=== PATIENT | female | born 1950 | race Caucasian/White ===

== ENCOUNTER 2016-03-13 15:56 | Emergency (ER) | payer MEDICARE, BC ==
[2016-03-13] MEDS ORDERED: PANTOPRAZOLE 40 MG VIAL IVP STA (17:09)
[2016-03-13] MEDS ORDERED: PANTOPRAZOLE 40 MG VIAL ONE (17:24)
== END 2016-03-13 20:50 | disposition home or self-care (01) ==
DX: D64.9 Anemia, unspecified (principal); K92.2 Gastrointestinal hemorrhage, unspecified; E11.22 Type 2 diabetes mellitus with diabetic chronic kidney disease; N18.9 Chronic kidney disease, unspecified; Z99.2 Dependence on renal dialysis; Z79.4 Long term (current) use of insulin; E78.00 Pure hypercholesterolemia, unspecified; Z87.19 Personal history of other diseases of the digestive system
CPT/HCPCS: 36415; 36430; 80048; 85025; 85610; 85730; 86850; 86900; 86901; 86920; 96374; 99283; 99284; P9016

== ENCOUNTER 2016-03-19 06:58 | Emergency (ER) | payer MEDICARE, BC ==
[2016-03-19] MEDS ORDERED: guaiFENesin/CODEINE 5 ML UDC PO STA (07:30)
[2016-03-19] MEDS ORDERED: guaiFENesin/CODEINE 5 ML UDC ONE (07:42)
[2016-03-19] MEDS ORDERED: LIDOCAINE PATCH 5% TOP STA (11:10)
[2016-03-19] MEDS ORDERED: LIDOCAINE PATCH 5% TOP ONE (11:11)
== END 2016-03-19 11:28 | disposition home or self-care (01) ==
DX: J18.9 Pneumonia, unspecified organism (principal); R07.89 Other chest pain; E11.22 Type 2 diabetes mellitus with diabetic chronic kidney disease; N18.6 End stage renal disease; Z99.2 Dependence on renal dialysis; Z79.4 Long term (current) use of insulin
CPT/HCPCS: 36415; 71020; 71250; 80048; 85025; 93005; 93010; 99283; 99284; A9270

== ENCOUNTER 2016-06-03 08:00 | Outpatient (CLI) | payer MEDICARE, BC | END 2016-06-03 08:01 | disposition home or self-care (01) | DX: R78.81 Bacteremia (principal) ==

== ENCOUNTER 2016-06-08 16:38 | Outpatient (CLI) | payer MEDICARE, BC | END 2016-06-08 16:39 | disposition critical access hospital (66) | DX: R53.1 Weakness (principal); R53.83 Other fatigue | CPT/HCPCS: A0425; A0429 ==

== ENCOUNTER 2016-06-08 17:00 | Emergency (ER) | payer MEDICARE, BC ==
--- NOTE | 2016-06-08 17:25 | ED Physician Documentation ---
History of Present Illness - Stated complaint Stated Complaint: weakness - Chief complaint Chief Complaint: Neuro - History obtained from History obtained from: Patient - History of Present Illness Timing: Today Pain level max: 0 Pain level now: 0 Improved by: rest Worsened by: movement - Additonal information Additional information: Patient is a 66-year-old female who presents to the emergency department after feeling weak all day today. States has become progressively weak throughout the day. States last time this happened her potassium was high. She is a hemodialysis patient, on dialysis at home. Sees Dr. Cohn for nephrology. Denies any recent illnesses or injury. She states it is been 2 days since her last dialysis Review of Systems Ten Systems: 10 systems reviewed and negative Constitutional: denies: Fever, Chills Nose: denies: Rhinorrhea / runny nose, Congestion Throat: denies: Sore throat Respiratory: denies: Cough GI: denies: Nausea, Vomiting, Diarrhea Skin: denies: Rash Musculoskeletal: denies: Neck pain, Back pain Neurologic: denies: Focal weakness, Numbness, Confused, Altered mental status, Headache PD PAST MEDICAL HISTORY - Past Medical History Past Medical History: Yes Cardiovascular: High cholesterol Endocrine/Autoimmune: Type 2 diabetes Psych: Depression, Anxiety Other Past Medical History: Abd'l Hernia - Past Surgical History Past Surgical History: Yes - Present Medications Home Medications: Ambulatory Orders Medication Instructions Recorded Confirmed Allopurinol 100 mg PO DAILY 06/05/14 06/08/16 Temazepam [Restoril] 7.5 mg PO DAILY PRN 06/05/14 06/08/16 buPROPion [Wellbutrin Xl] 300 mg PO DAILY 06/05/14 06/08/16 predniSONE [Deltasone] 2.5 mg PO BID 06/05/14 06/08/16 Citalopram Hydrobromide 40 mg PO DAILY 01/27/15 06/08/16 [Citalopram HBr] Furosemide 160 mg PO BID 01/27/15 06/08/16 Sevelamer Carbonate [Renvela] 3 tab PO TID 01/27/15 06/08/16 Calcitriol [Rocaltrol] 0.5 mcg PO DAILY 10/10/15 06/08/16 Calcium Carbonate 1,500 mg PO DAILY 10/10/15 06/08/16 Cinacalcet HCl [Sensipar] 60 mg PO DAILY 10/10/15 06/08/16 Levothyroxine Sodium [Unithroid] 150 mcg PO DAILY 10/10/15 06/08/16 Omeprazole 40 mg PO DAILY 10/10/15 06/08/16 Rosuvastatin Calcium [Crestor] 20 mg PO DAILY 10/10/15 06/08/16 Solifenacin Succinate [Vesicare] 5 mg PO DAILY 10/10/15 06/08/16 Azithromycin [Zithromax] 250 mg PO DAILY #6 tablet 03/19/16 06/08/16 Heparin Sodium,Porcine/Pf [Heparin 1,600 units IV DAILY 03/19/16 06/08/16 1,000 Unit/10 (100/ml)] - Allergies Allergies/Adverse Reactions: Allergies Allergy/AdvReac Type Severity Reaction Status Date / Time promethazine HCl * AdvReac Hallucinati Verified 06/08/16 17:14 [From Phenergan] ons - Social History Does the pt smoke?: No Smoking Status: Never smoker Does the pt drink ETOH?: Yes ETOH Use: Liquor Does the pt have substance abuse?: No - Immunizations Immunizations are current?: Yes - POLST Patient has POLST: No PD ED PE NORMAL - Vitals Vital signs reviewed: Yes - General General: Alert and oriented X 3, No acute distress, Well developed/nourished - HEENT HEENT: Moist mucous membranes - Neck Neck: Supple, no meningeal sign - Cardiac Cardiac: RRR, Strong equal pulses - Respiratory Respiratory: No respiratory distress, Clear bilaterally - Abdomen Abdomen: Soft, Non tender, Non distended - Derm Derm: Warm and dry, No rash - Extremities Extremities: Other (LUE fistula with palpable thrill) - Neuro Neuro: Alert and oriented X 3 - Psych Psych: Normal mood, Normal affect Results - Vitals Vitals: Vital Signs - 24 hr 06/08/16 06/08/16 06/08/16 17:02 17:40 18:03 Temperature 37.1 C Heart Rate 96 96 92 Respiratory 19 20 19 Rate Blood Pressure 156/87 H 149/85 H 149/85 H O2 Saturation 98 100 99 06/08/16 19:54 Temperature Heart Rate 92 Respiratory 12 Rate Blood Pressure 159/79 H O2 Saturation 100 Oxygen O2 Source Room air - EKG (time done) 1811 Rate: Rate (enter#) (90) Rhythm: NSR [place]: Normal Intervals: Prolonged ND QRS: Normal Ischemia: Other (minimal ST elevation II, aVF) - Labs Labs: Laboratory Tests 06/08/16 06/08/16 06/08/16 17:28 17:28 17:28 WBC 9.4 RBC 3.05 L Hgb 8.9 L Hct 26.3 L MCV 86.1 MCH 29.3 MCHC 34.0 RDW 16.0 H Plt Count 304 MPV 7.3 L Neut # 7.3 H Lymph # 1.2 L [place] # 0.6 Eos # 0.1 Baso # 0.1 Absolute Nucleated RBC 0.02 Nucleated RBCs 0.2 Sodium 130 L Potassium 6.1 H* Chloride 90 L Carbon Dioxide 24 Anion Gap 16.0 H BUN 84 H* Creatinine 9.6 H* Estimated GFR (MDRD) 4 L Glucose 227 H Calcium 7.5 L Phosphorus 4.6 Magnesium 3.0 H Total Bilirubin 0.6 AST 30 ALT 27 Alkaline Phosphatase 63 Troponin I 0.05 Total Protein 7.4 Albumin 4.4 Globulin 3.0 Albumin/Globulin Ratio 1.5 Lipase 57 H - Rads (name of study) cxr Radiology: Prelim report reviewed, EMP read contemporaneously, See rad report ( New cardiomegaly and pulmonary vascular congestion, suggesting CHF) PD MEDICAL DECISION MAKING - ED course Complexity details: reviewed old records, reviewed results, re-evaluated patient , considered differential, d/w patient, d/w outside sales consultant (Dr. Cohn - Recommends d/ c home, kayexalate 30gm PO, and dialysis when she returns home.) ED course: Patient presents to the emergency department with a mild hyperkalemia. No EKG changes. Given insulin here as she does have high blood sugar. She is able to do her dialysis at home tonight, will have her do this. Discussed with Dr. Cohn , who will follow up with her. This should also help the fluid overload. She is on Lasix at home and does still make urine. She is otherwise asymptomatic here. No hypoxia. No respiratory distress. No chest pain. Patient counseled regarding signs and symptoms for which I believe and urgent re-evaluation would be necessary. Patient with good understanding of and agreement to plan and is comfortable going home at this time This document was made in part using voice recognition software. While efforts are made to proofread this document, sound alike and grammatical errors may occur. Departure - Departure Disposition: 01 Home, Self Care Clinical Impression: Hyperkalemia Pulmonary edema Qualifiers: Chronicity: acute Qualified Code(s): J81.0 - Acute pulmonary edema Condition: Good Instructions: ED Potassium Excess Follow-Up: René Wood MD [Primary Care Provider] - Within 3 Days Comments: Return if you worsen. I spoke with Dr. Suki avery and he says you need to go home and do your dialysis. Return here if you fail to improve. You should have your potassium rechecked in 3 days with your doctor Discharge Date/Time: 06/08/16 20:32
[2016-06-08] MEDS: SODIUM CHLORIDE 0.9% 500 ML IV ONE (17:40)
[2016-06-08 18:18] LABS: ALBUMIN/GLOBULIN RATIO 1.5 (1.0-2.2); BILIRUBIN,TOTAL 0.6 mg/dL (0.2-1.0); CALCIUM 7.5 mg/dL (8.5-10.3); PHOSPHORUS 4.6 mg/dL (2.5-4.6); TOTAL PROTEIN 7.4 g/dL (6.7-8.2)
[2016-06-08 18:19] LABS: POTASSIUM 6.1 mmol/L (3.5-5.0)
[2016-06-08 18:21] LABS: CREATININE 9.6 mg/dL (0.4-1.0)
[2016-06-08 18:29] LABS: BASOPHILS # (AUTO) 0.1 10^3/uL (0.0-0.1); BASOPHILS % (AUTO) 0.8 %; EOSINOPHILS # (AUTO) 0.1 10^3/uL (0.0-0.7); EOSINOPHILS % (AUTO) 0.7 %; HCT - HEMATOCRIT 26.3 % (37.0-47.0); HGB - HEMOGLOBIN 8.9 g/dL (12.0-16.0); LYMPHOCYTES # (AUTO) 1.2 10^3/uL (1.5-3.5); LYMPHOCYTES % (AUTO) 13.2 %; MEAN CORPUSCULAR HEMOGLOBIN 29.3 pg (27.0-31.0); MEAN CORPUSCULAR VOLUME 86.1 fL (81.0-99.0); MEAN PLATELET VOLUME 7.3 fL (7.9-10.8); MONOCYTES # (AUTO) 0.6 10^3/uL (0.0-1.0); MONOCYTES % (AUTO) 6.9 %; NEUTROPHILS # (AUTO) 7.3 10^3/uL (1.5-6.6); NEUTROPHILS % (AUTO) 78.4 %; NUCLEATED RED BLOOD CELLS AUTO 0.2 /100WBC; RED BLOOD COUNT 3.05 10^6/uL (4.20-5.40); UNCORRECTED WHITE BLOOD COUNT 9.4 x10^3/uL; WHITE BLOOD COUNT 9.4 x10^3/uL (4.8-10.8)
[2016-06-08] MEDS ORDERED: INSULIN REGULAR HUMAN 100 UNIT/1 ML 10 ML MDV ONE (18:29)
[2016-06-08] MEDS: INSULIN REGULAR HUMAN 100 UNIT/1 ML 10 ML MDV SUBQ STA (18:32)
[2016-06-08] MEDS ORDERED: SODIUM POLYSTYRENE SULFONATE 15 GM/60 ML BOTTLE ONE (18:43)
[2016-06-08 19:55] VITALS: BP 159/79
--- NOTE | 2016-06-08 19:56 | XRAY Preliminary Report ---
Exam: XR Chest 1 View IMPRESSION: New cardiomegaly and pulmonary vascular congestion, suggesting CHF. [facility]
--- NOTE | 2016-06-08 19:58 | XRAY Report ---
EXAM: CHEST RADIOGRAPHY EXAM DATE: 06/08/2016 07:30 PM. CLINICAL HISTORY: Dyspnea and weakness. COMPARISON: CT chest and chest radiograph 03/19/2016. TECHNIQUE: 1 view. FINDINGS: Lungs/Pleura: New diffuse vascular engorgement. No pneumothorax or convincing pleural effusion. Mediastinum: New cardiomegaly. Other: Degenerative changes within the spine. IMPRESSION: New cardiomegaly and pulmonary vascular congestion, suggesting CHF. [facility] Referring Provider Line: [phone]
[2016-06-08] MEDS: SODIUM POLYSTYRENE SULFONATE 15 GM/60 ML BOTTLE PO STA (20:04)
== END 2016-06-08 20:32 | disposition home or self-care (01) ==
LOC: EDUNIT# → ED 17:00
DX: E87.5 Hyperkalemia (principal); J81.0 Acute pulmonary edema; E78.00 Pure hypercholesterolemia, unspecified; E11.9 Type 2 diabetes mellitus without complications
CPT/HCPCS: 36415; 71010; 80053; 83690; 83735; 84100; 84484; 85025; 93005; 93010; 99284

== ENCOUNTER 2016-06-11 08:00 | Outpatient (CLI) | payer MEDICARE, BC | END 2016-06-11 08:01 | DX: R78.81 Bacteremia (principal) ==

== ENCOUNTER 2016-06-17 10:59 | Outpatient (CLI) | payer MEDICARE, BC | END 2016-06-17 11:00 | disposition home or self-care (01) | DX: G47.33 Obstructive sleep apnea (adult) (pediatric) (principal) | CPT/HCPCS: 99203; G0463 ==

== ENCOUNTER 2016-07-01 16:22 | Outpatient (CLI) | payer MEDICARE, BC | END 2016-07-01 16:23 | disposition home or self-care (01) | DX: R78.81 Bacteremia (principal) ==

== ENCOUNTER 2016-07-06 21:00 | Outpatient (CLI) | payer MEDICARE, BC | END 2016-07-06 21:01 | disposition home or self-care (01) | DX: Z53.9 Procedure and treatment not carried out, unspecified reason (principal) ==

== ENCOUNTER 2016-07-13 08:02 | Observation (INO) | payer MEDICARE, BC ==
--- NOTE | 2016-07-13 08:57 | ED Physician Documentation ---
History of Present Illness - Stated complaint Stated Complaint: WEAKNESS - Chief complaint Chief Complaint: General - Additonal information Additional information: hx from pt 66 f ESRD does home hemodialysis 5 d per week her maker up folding is Dr Cohn she has chronic GI bleeding - has been extensively worked up with EGD colonoscopy tagged red cell study, swallowed camera etc with no dx - beleieved to be slow seepage 2.2 ESRD had a transfusion yesterday feels generally weak today - no focal numbness or weakness so her nephorlogist told her to come in to get checked - specifically lytes and HGB denies fever chills no NELSON CP AP cough no NVD stools dark could be 2/2 iron infusion she states she is 3 kg up but does not feel she has pulm edema and declines CXR Review of Systems Constitutional: denies: Fever, Chills Throat: denies: Sore throat Cardiac: denies: Chest pain / pressure Respiratory: reports: Cough. denies: Dyspnea GI: reports: Bloody / black stool (dark). denies: Abdominal Pain, Nausea, Vomiting : reports: Other (ESRD) Neurologic: reports: Generalized weakness. denies: Focal weakness, Numbness Endocrine: denies: Easy bruising / bleeding Immunocompromised: denies: Immunocompromised PD PAST MEDICAL HISTORY - Past Medical History Past Medical History: Yes Cardiovascular: High cholesterol Endocrine/Autoimmune: Type 2 diabetes Psych: Depression, Anxiety - Past Surgical History Past Surgical History: Yes - Present Medications Home Medications: Ambulatory Orders Medication Instructions Recorded Confirmed Allopurinol 100 mg PO DAILY 06/05/14 07/12/16 Temazepam [Restoril] 7.5 mg PO DAILY PRN 06/05/14 07/12/16 buPROPion [Wellbutrin Xl] 300 mg PO DAILY 06/05/14 07/12/16 predniSONE [Deltasone] 2.5 mg PO BID 06/05/14 07/12/16 Citalopram Hydrobromide 40 mg PO DAILY 01/27/15 07/12/16 [Citalopram HBr] Furosemide 160 mg PO BID 01/27/15 07/12/16 Sevelamer Carbonate [Renvela] 3 tab PO TID 01/27/15 07/12/16 Calcitriol [Rocaltrol] 0.5 mcg PO DAILY 10/10/15 07/12/16 Calcium Carbonate 1,500 mg PO DAILY 10/10/15 07/12/16 Cinacalcet HCl [Sensipar] 60 mg PO DAILY 10/10/15 07/12/16 Levothyroxine Sodium [Unithroid] 150 mcg PO DAILY 10/10/15 07/12/16 Omeprazole 40 mg PO DAILY 10/10/15 07/12/16 Rosuvastatin Calcium [Crestor] 20 mg PO DAILY 10/10/15 07/12/16 Solifenacin Succinate [Vesicare] 5 mg PO DAILY 10/10/15 07/12/16 Azithromycin [Zithromax] 250 mg PO DAILY #6 tablet 03/19/16 07/12/16 Heparin Sodium,Porcine/Pf [Heparin 1,600 units IV DAILY 03/19/16 07/12/16 1,000 Unit/10 (100/ml)] - Allergies Allergies/Adverse Reactions: Allergies Allergy/AdvReac Type Severity Reaction Status Date / Time promethazine HCl * AdvReac Hallucinati Verified 06/08/16 17:14 [From Phenergan] ons - Social History Does the pt smoke?: No Smoking Status: Never smoker Does the pt drink ETOH?: Yes Does the pt have substance abuse?: No - Immunizations Immunizations are current?: Yes - POLST Patient has POLST: No PD ED PE NORMAL - Vitals Vital signs reviewed: Yes - HEENT HEENT: Atraumatic - Neck Neck: Supple, no meningeal sign - Cardiac Cardiac: RRR. No: No murmur (loud sys mur,urs - not new per pt, per chart) - Respiratory Respiratory: No respiratory distress, Clear bilaterally - Abdomen Abdomen: Soft, Non tender - Rectal Rectal: Other (dark strongly heme occult + stool QC passed) - Derm Derm: Normal color - Extremities Extremities: No deformity - Neuro Neuro: Alert and oriented X 3, improvement rn 2-12 intact, No motor deficit, No sensory deficit, Normal speech Results - Vitals Vitals: Vital Signs - 24 hr 07/13/16 07/13/16 07/13/16 08:08 09:38 10:37 Temperature 36.7 C Heart Rate 98 91 91 Respiratory 16 20 Rate Blood Pressure 164/88 H 158/88 H 144/70 H O2 Saturation 95 96 95 07/13/16 11:25 Temperature Heart Rate 88 Respiratory 18 Rate Blood Pressure 163/77 H O2 Saturation 96 Oxygen O2 Source Room air - EKG (time done) 0852 Rate: Rate (enter#) (92) Rhythm: NSR [place]: Normal Intervals: Normal [place] QRS: Normal Ischemia: Normal ST segments - Labs Labs: Laboratory Tests 07/13/16 07/13/16 07/13/16 09:00 09:00 09:00 WBC 9.7 RBC 2.73 L Hgb 8.4 L Hct 23.4 L MCV 85.8 MCH 31.0 MCHC 36.1 H RDW 15.5 H Plt Count 236 MPV 7.8 L Neut # 7.5 H Lymph # 0.9 L [place] # 1.0 Eos # 0.2 Baso # 0.1 Absolute Nucleated RBC 0.03 Nucleated RBCs 0.3 Sodium 135 Potassium 4.0 Chloride 95 L Carbon Dioxide 23 Anion Gap 17.0 H BUN 83 H* Creatinine 10.4 H* Estimated GFR (MDRD) 4 L Glucose 124 H Calcium 9.2 Phosphorus 6.4 H Magnesium 2.5 Troponin I 0.07 PD MEDICAL DECISION MAKING - ED course ED course: discussed results with nephrology diamond expert he recommends pt need hgb > 9 and if still GI bleeding and < 9 transfer to [facility] for admit for transfusion where there is nephrology pt however declines to be transferred to [facility] - she states she wants to be transfused here and then will do her own dialysis tonight at home since will take many hours to slowly transfuse a dialysis pt while watching for fluid overload discussed with hospitalist Dr Diaz who agreed to place pt in obs Departure - Departure Disposition: ED Place in Observation Clinical Impression: Weakness, ESRD (end stage renal disease) GI bleed Qualifiers: GI bleed type/associated pathology: unspecified gastrointestinal hemorrhage type Qualified Code(s): K92.2 - Gastrointestinal hemorrhage, unspecified Anemia Qualifiers: Anemia type: unspecified type Qualified Code(s): D64.9 - Anemia, unspecified Condition: Fair Discharge Date/Time: 07/13/16 12:31
[2016-07-13 09:09] LABS: BASOPHILS # (AUTO) 0.1 10^3/uL (0.0-0.1); BASOPHILS % (AUTO) 0.9 %; EOSINOPHILS # (AUTO) 0.2 10^3/uL (0.0-0.7); EOSINOPHILS % (AUTO) 2.3 %; HCT - HEMATOCRIT 23.4 % (37.0-47.0); HGB - HEMOGLOBIN 8.4 g/dL (12.0-16.0); LYMPHOCYTES # (AUTO) 0.9 10^3/uL (1.5-3.5); LYMPHOCYTES % (AUTO) 9.2 %; MEAN CORPUSCULAR HGB CONC 36.1 g/dL (32.0-36.0); MEAN CORPUSCULAR VOLUME 85.8 fL (81.0-99.0); MEAN PLATELET VOLUME 7.8 fL (7.9-10.8); MONOCYTES % (AUTO) 10.6 %; NEUTROPHILS # (AUTO) 7.5 10^3/uL (1.5-6.6); NUCLEATED RED BLOOD CELLS AUTO 0.3 /100WBC; RED BLOOD COUNT 2.73 10^6/uL (4.20-5.40); RED CELL DISTRIBUTION WIDTH 15.5 % (12.0-15.0); UNCORRECTED WHITE BLOOD COUNT 9.7 x10^3/uL; WHITE BLOOD COUNT 9.7 x10^3/uL (4.8-10.8)
[2016-07-13 09:58] LABS: CALCIUM 9.2 mg/dL (8.5-10.3); MAGNESIUM 2.5 mg/dL (1.7-2.8); PHOSPHORUS 6.4 mg/dL (2.5-4.6)
[2016-07-13 10:00] LABS: CREATININE 10.4 mg/dL (0.4-1.0)
[2016-07-13] MEDS ORDERED: oxyCODONE 5 MG TABLET PO PRN ×2 (11:56)
[2016-07-13] MEDS ORDERED: ACETAMINOPHEN 325 MG TABLET PO PRN (11:56)
[2016-07-13] MEDS ORDERED: ONDANSETRON 4 MG/2 ML VIAL IVP PRN (11:56)
[2016-07-13] MEDS ORDERED: SODIUM CHLORIDE FLUSH 0.9% 10 ML SYRINGE IVP PRN (11:56)
[2016-07-13] MEDS ORDERED: FUROSEMIDE 40 MG TABLET PO SCH (12:00)
--- NOTE | 2016-07-13 12:06 | HISTORY & PHYSICAL EXAMINATION ---
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 The patient was transfused 2 units of packed RBCs in the [facility] clinic yesterday as she had a hemoglobin of 7.3 from last Friday. She states that she returned home and did dialysis last night and when she woke up this morning she felt very dizzy and weak this is usually an indication to her that she needs further blood transfusion. The patient presents to the emergency department for a blood transfusion. Patient states that she has chronic shortness of breath that is not any worse than her normal. Patient also states she has chronic cough but is not any worse than her normal. She denies any chest pain. She states that her normal dry weight is 90.8 kg and today her weight is 93.8 kg. On presentation to the emergency department the patient was afebrile and had stable vital signs her CBC revealed a hemoglobin of 8.4. The patient's residential treatment staff Dr. Caraballo requested that the patient be transfused slowly. Initially plan was for the patient to be sent to [facility] to be transfused however the patient declined to be transferred. She requested that she get transfused 1 unit here and then she would return home to perform dialysis. She stated that if she needed further transfusion she would return to the emergency department. Patient was placed in observation on the medical huynh for 1 unit blood transfusion and then will be discharged home for dialysis. Review of Systems - Constitutional Constitutional: reports: Fatigue, Weakness, Poor appetite, Weight gain. denies : Fever, Chills, Malaise, Diaphoresis, Night sweats - Eyes Eyes: denies: Pain, Irritation, Amaurosis, Blurred vision, Spots in vision, Field loss, Vision loss, Dipolpia, Corrective lenses, Other - Ears, Nose & Throat Ears, Nose & Throat: denies: Ear pain, Hearing loss, Hearing aids, Tinnitus, Vertigo, Nasal pain, Nasal discharge, Nosebleeds, Nasal obstruction, Nasal congestion, Postnasal drainage, Dentures, Sore throat, Hoarseness, Mouth lesions , Bleeding gums, Dental decay, Dental pain, Other - Cardiovascular Cariovascular: denies: Irregular heart rate, Palpitations, Chest pain, Edema, Lightheadedness, Syncope, Exertional dyspnea, Decr. exercise tolerance, Orthopnea, Other - Respiratory Respiratory: reports: Cough (chronic), SOB with exertion (chronic). denies: Sputum production, Wheezing, Hemoptysis, Orthopnea, Apnea, Pleuritic pain - Gastrointestinal Gastrointestinal: reports: Other (large abd hernia). denies: Abdominal pain, Abdominal distention, Constipation, Diarrhea, Change in bowel habits, Rectal bleeding, Black stools, Bloody stools, Nausea, Vomiting, Bile emesis, Silver blood emesis, Coffee grounds emesis, Reflux/heartburn, Bloating, Poor appetite - Genitourinary Genitourinary: denies: Dysuria, Frequency, Urgency, Hematuria, Incontinence, Flank pain, Nocturia, Urethral discharge, Sexual dysfunction, Other - Musculoskeletal Musculoskeletal: denies: Muscle pain, Back pain, Muscle aches, Stiffness, Limited range of motion, Muscle weakness, Gout, Joint pain, Joint swelling, Other - Integumentary Integumentary: denies: Rash, Pruritis, Lesions, Dryness, Lumps, Acne, Pigment changes, Nail changes, Hair changes, Other - Neurological Neurological: reports: General weakness, Dizziness. denies: Focal weakness, Headache, Numbness, Memory problems, Pre-existing deficit, Abnormal gait, Seizures, Incoordination, Slurred speech - Psychiatric Psychiatric: denies: Depression, Anxiety, Suicidal, Delusions, Hallucinations, Homicidal, Other - Endocrine Endocrine: denies: Polyuria, Polydypsia, Polyphagia, Intolerance to cold, Intolerance to heat, Other - Hematologic/Lymphatic Hematologic/Lymphatic: denies: Anemia, Bruising, Petechiae, Blood clots, Lymphadenopathy, Bleeding tendencies, Recurrent infections, Other History - Past Medical History Cardiovascular: reports: Hypertension, High cholesterol Endocrine/Autoimmune: reports: Type 2 diabetes GI: reports: GI bleed (chronic), Other (Hernia) : reports: Dialysis, Other (End Stage Renal Disease) Psych: reports: Depression, Anxiety MRSA Hx?: No - Past Surgical History Other past surgical history: Kidney trasplant 2006 - Family & Social History Family History: Mother: Cancer (uterine), Father: (Had macular degeneration but of old age), Sister: Alive and Well, Brother: Diabetes, Type 2 Living arrangement: At home Living Situation: With spouse/s.o. 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 Lives in [place] with significant other, 2 daughters in [place] , 4 grandkids. - Substance History Use: Uses substance without health or social issues: Alcohol (occasionally drinks a glass of wine or whiskey), Cannabis (occasionally) Abuse: Recurrent use of substance despite neg consequences: NONE Dependence: Experiences withdrawal or developed tolerances: NONE - POLST Patient has POLST: No POLST Status: Full Code Meds/Allgy - Home Medications Home Medications: Ambulatory Orders Medication Instructions Recorded Confirmed Allopurinol 100 mg PO DAILY 06/05/14 07/12/16 Temazepam [Restoril] 7.5 mg PO DAILY PRN 06/05/14 07/12/16 buPROPion [Wellbutrin Xl] 300 mg PO DAILY 06/05/14 07/12/16 predniSONE [Deltasone] 2.5 mg PO BID 06/05/14 07/12/16 Citalopram Hydrobromide 40 mg PO DAILY 01/27/15 07/12/16 [Citalopram HBr] Furosemide 160 mg PO BID 01/27/15 07/12/16 Sevelamer Carbonate [Renvela] 3 tab PO TID 01/27/15 07/12/16 Calcitriol [Rocaltrol] 0.5 mcg PO DAILY 10/10/15 07/12/16 Calcium Carbonate 1,500 mg PO DAILY 10/10/15 07/12/16 Cinacalcet HCl [Sensipar] 60 mg PO DAILY 10/10/15 07/12/16 Levothyroxine Sodium [Unithroid] 150 mcg PO DAILY 10/10/15 07/12/16 Omeprazole 40 mg PO DAILY 10/10/15 07/12/16 Rosuvastatin Calcium [Crestor] 20 mg PO DAILY 10/10/15 07/12/16 Solifenacin Succinate [Vesicare] 5 mg PO DAILY 10/10/15 07/12/16 Azithromycin [Zithromax] 250 mg PO DAILY #6 tablet 03/19/16 07/12/16 Heparin Sodium,Porcine/Pf [Heparin 1,600 units IV DAILY 03/19/16 07/12/16 1,000 Unit/10 (100/ml)] - Allergies Allergies/Adverse Reactions: Allergies Allergy/AdvReac Type Severity Reaction Status Date / Time promethazine HCl * AdvReac Hallucinati Verified 06/08/16 17:14 [From Phenergan] ons Exam - Vital Signs Reviewed Vital Signs: Yes Vital Signs: Vital Signs x48h Temp Pulse Resp BP Pulse Ox 07/13/16 11:25 88 18 163/77 H 96 07/13/16 10:37 91 20 144/70 H 95 07/13/16 09:38 91 158/88 H 96 07/13/16 08:08 36.7 C 98 16 164/88 H 95 - Physical Exam General Appearance: positive: No acute distress, Alert, Other (Obese) Eyes Bilateral: positive: Normal inspection, PERRL, EOMI, No lid inflammation, Conjunctivae nml, No scleral icterus ENT: positive: ENT inspection nml, Pharynx nml, No signs of dehydration. negative: Purulent nasal drainage, Pharyngeal erythema, Oral lesions Neck: positive: Nml inspection, Thyroid nml, No JVD, Trachea midline. negative : Thyromegaly, Lymphadenopathy (R), Lymphadenopathy (L) Respiratory: positive: Chest non-tender, No respiratory distress, Rales (bases) . negative: Wheezes, Rhonchi Cardiovascular: positive: Regular rate & rhythm, No murmur, No gallop Peripheral Pulses: positive: 2+ Abdomen: positive: Non-tender, No organomegaly, Nml bowel sounds, Other (Large hernia). negative: Guarding, Rebound Back: positive: Nml inspection. negative: CVA tenderness (R), CVA tenderness (L ) Skin: positive: Color nml, No rash, Warm, Pallor Extremities: positive: Non-tender, Full ROM, Nml appearance, Pedal edema (mild) Neurologic/Psychiatric: positive: Oriented x3, CN's nml (2-12), Motor nml, Sensation nml, Mood/affect nml Conclusion/Plan - Problem List (1) Anemia Conclusion/Plan: Secondary to chronic GI bleed of undetermined source likely from AVMs Full work up done over years Treated with periodic blood transfusion Blood transfusion yesterday with 2 units but still symptomatic Patient does not want to go to [facility] for blood transfusion Plan: Give 1 units PRBC Recheck Hb Send home for home dialysis Qualifiers: Anemia type: unspecified type Qualified Code(s): D64.9 - Anemia, unspecified (2) ESRD (end stage renal disease) Conclusion/Plan: 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 Qualifiers: Diabetes mellitus type: type 2 - Lab Results Lab results reviewed: Yes Fish Bones: 07/13/16 09:00 07/13/16 09:00 - Diagnostic Imaging Results Diagnostic Imaging Results: positive: Final report reviewed Issues/Core Measures - Anticipated LOS Anticipated Stay Length: Less than 2 midnights - DVT/VTE - Prophylaxis VTE/DVT Prophylaxis med ordered at admit?: Yes
[2016-07-13 13:35] LABS: HEMOGLOBIN A1C 0.31 g/dL
[2016-07-13] MEDS ORDERED: SODIUM CHLORIDE FLUSH 0.9% 10 ML SYRINGE IVP SCH (14:00)
[2016-07-13] MEDS ORDERED: INSULIN ASPART 300 UNIT/3 ML PEN SUBQ SCH (17:00)
--- NOTE | 2016-07-13 17:57 | Discharge Plan ---
Discharge Plan Disposition: Home, Self Care Condition: Fair Diet: Diabetic Activity Restrictions: Activity as Tolerated Shower Restrictions: No Driving Restrictions: No Weight Bearing: Full Weight Additional Instructions or Follow Up instructions: You presented to the hospital with dizziness and nausea. We found your Hb was only 8.4 despite you getting 2 units of blood yesterday. We placed you in observation to get 1 units of blood today. You received the blood and there were no complications so you are ready to go home. Please make sure to do dialysis today and I would recommend taking off a little extra fluid the next few days as you are a bit over your dry weight. Also please follow up for a lab draw on Friday to check your Hb. No Smoking: If you smoke, Please STOP! Call for help.
[2016-07-13 18:54] VITALS: BP 165/70
[2016-07-14] MEDS ORDERED: PANTOPRAZOLE 40 MG TABLET PO SCH (07:00)
--- NOTE | 2016-07-14 08:34 | DISCHARGE SUMMARY ---
DATE OF ADMISSION: 07/13/2016 DATE OF DISCHARGE: 07/13/2016 PRIMARY CARE PHYSICIAN: René Wood MD LIDAR ANALYST: Lucy Cohn MD DISCHARGING PHYSICIAN: Esteban Diaz MD DISCHARGE DIAGNOSES 1. Anemia. 2. End-stage renal disease. 3. Diabetes. MEDICATIONS 1. Prednisone 2.5 mg p.o. b.i.d. 2. Wellbutrin-XL 300 mg p.o. daily. 3. Restoril 7.5 mg p.o. daily p.r.n. for anxiety. 4. VESIcare 5 mg p.o. daily. 5. Renvela 2400 mg p.o. b.i.d. 6. Crestor 20 mg p.o. daily. 7. Omeprazole 40 mg p.o. daily. 8. Synthroid 150 mcg p.o. daily. 9. Lasix 160 mg p.o. b.i.d. 10. Citalopram 40 mg p.o. daily. 11. Cinacalcet 60 mg p.o. daily. 12. Calcium carbonate 1500 mg p.o. daily. 13. Calcitriol 0.5 mcg p.o. daily. 14. Azithromycin 250 mg p.o. daily. 15. Allopurinol 100 mg p.o. daily. HOSPITAL COURSE: The patient is a very pleasant 66-year-old female with a past medical history significant for end-stage renal disease on home dialysis 5 times a week secondary to focal segmental glomerular nephritis diagnosed in 2004 , status post transplant in 2006, with failed transplant in 2012, back on dialysis, history of chronic GI bleed with extensive workup including EGD, colonoscopy, capsule endoscopy and RBC scan without obvious source, thought to likely be bleeding slowly from AVMs, who receives blood transfusions off and on , diabetes, hypertension, hyperlipidemia and large abdominal hernia, who presented to the emergency department with a chief complaint of dizziness and weakness. The patient had just received 2 units of packed RBCs in the MAC clinic the day prior to presentation. She had a hemoglobin of 7.3 one week prior to the transfusion, but the hemoglobin was only reported to her just the day prior to presentation to the hospital. The patient states that after she returned home from the transfusion she did perform dialysis at home. However, when she woke up in the morning, she felt very dizzy, felt weak and was nauseous. She stated that this usually indicates that she needs further blood transfusions, so she came in to the emergency department. The patient on presentation to the emergency department was found to have a hemoglobin of 8.4 and at the request of Dr. Cohn, the patient was placed in observation for an additional unit of packed RBCs. The patient received 1 unit of packed RBCs in observation. She declined to have her hemoglobin drawn. She did get a lab request form for hemoglobin to be drawn on 07/15/2016. The patient was discharged home, will perform dialysis today. She was asked to take off extra fluid for the next several days of dialysis as she was above her dry weight by about 3 kg on presentation to the hospital. The patient was advised to follow up with her primary care physician and her pipe buffer. The results of the hemoglobin draw on 07/13/2016 will be sent to Dr. Wood and Dr. Cohn. The patient was discharged in stable condition. PHYSICAL EXAMINATION AT DISCHARGE VITAL SIGNS: Temperature 37.1, heart rate 99, blood pressure 151/71, respiratory rate 18, O2 saturation 97% on room air. GENERAL: The patient is obese. She is pleasant, alert, and able to answer all my questions appropriately. HEENT: Pupils are equal and reactive to light. Extraocular muscles are intact. Mucous membranes are moist. There is no conjunctival pallor or scleral icterus noted. NECK: Supple. No thyromegaly. No JVD. Trachea is midline. LYMPH NODES: There is no cervical or axillary lymphadenopathy noted. CARDIOVASCULAR: S1, S2, regular rate and rhythm. No murmurs, rubs, or gallops. LUNGS: Clear to auscultation bilaterally. No wheezes, rhonchi, or crackles. ABDOMEN: Obese. There is a large hernia that is protruding from the patient's abdomen. Otherwise bowel sounds are present, and there is no rebound or guarding. EXTREMITIES: There is some mild lower extremity edema. Peripheral pulses are palpable. There is no cyanosis or clubbing. SKIN: No skin rash, lesions, cellulitis, or abscesses. MUSCULOSKELETAL: The patient has good range of motion. No joint tenderness. No joint effusions. NEUROLOGIC: The patient is alert, oriented x3. Cranial nerves 2 -12 are grossly intact. Strength is grossly normal. LABORATORY: WBC 9.7, hemoglobin 8.4, hematocrit 23.4, platelet count 236. Sodium 135, potassium 4.0, chloride 95, carbon dioxide 23, BUN 83, creatinine 10.4, glucose 124. Glycosylated hemoglobin 5.2, calcium 9.2, phosphorus 6.4, magnesium 2.5, troponin 0.07. IMAGING: EKG impression: Sinus rhythm, no ST elevations or ischemic changes. FOLLOWUP/RECOMMENDATIONS: The patient was placed in observation for 1 unit of blood transfusion. After transfusion, she was discharged home. She will perform dialysis at home. She will return on 07/15/2016 to have her blood drawn to check another hemoglobin. These results will be sent to Dr. Wood and Dr. Cohn. The patient will follow up with her pipe buffer and her PCP, and will continue on home dialysis. Greater than 30 minutes were spent on discharge. JOB #: [id number] EXT JOB #:[id number] MTDD
[2016-07-14] MEDS ORDERED: POLYETHYLENE GLYCOL 3350 17 GM PACKET PO SCH (09:00)
[2016-07-14] MEDS ORDERED: ENOXAPARIN 40 MG/0.4 ML SYRINGE SUBQ SCH (09:00)
== END 2016-07-13 19:05 | disposition home or self-care (01) ==
LOC: ED 08:02 → MS 11:56
PROVIDERS: ADMIT Internal Medicine; ATTEND Internal Medicine
DX: D50.0 Iron deficiency anemia secondary to blood loss (chronic) (principal); K92.2 Gastrointestinal hemorrhage, unspecified; T86.12 Kidney transplant failure; E11.22 Type 2 diabetes mellitus with diabetic chronic kidney disease; I12.0 Hypertensive chronic kidney disease with stage 5 chronic kidney disease or end stage renal disease; N18.6 End stage renal disease; E78.5 Hyperlipidemia, unspecified; E66.9 Obesity, unspecified; Z79.52 Long term (current) use of systemic steroids; Z99.2 Dependence on renal dialysis; Z79.899 Other long term (current) drug therapy; Z68.36 Body mass index [BMI] 36.0-36.9, adult
CPT/HCPCS: 36415; 36430; 80048; 83036; 83735; 84100; 84484; 85025; 86850; 86900; 86901; 86920; 93005; 93010; 99283; 99284; A9270; P9016; 82310; 85014; 85018

== ENCOUNTER 2016-07-15 16:00 | Outpatient (CLI) | payer MEDICARE, BC ==
[2016-07-15 19:56] LABS: BASOPHILS # (AUTO) 0.1 10^3/uL (0.0-0.1); BASOPHILS % (AUTO) 1.1 %; EOSINOPHILS # (AUTO) 0.3 10^3/uL (0.0-0.7); HCT - HEMATOCRIT 31.6 % (37.0-47.0); HGB - HEMOGLOBIN 11.3 g/dL (12.0-16.0); LYMPHOCYTES # (AUTO) 1.4 10^3/uL (1.5-3.5); LYMPHOCYTES % (AUTO) 16.9 %; MEAN CORPUSCULAR HEMOGLOBIN 31.4 pg (27.0-31.0); MEAN CORPUSCULAR HGB CONC 35.8 g/dL (32.0-36.0); MEAN CORPUSCULAR VOLUME 87.8 fL (81.0-99.0); MEAN PLATELET VOLUME 8.2 fL (7.9-10.8); MONOCYTES % (AUTO) 12.3 %; NEUTROPHILS # (AUTO) 5.7 10^3/uL (1.5-6.6); NEUTROPHILS % (AUTO) 66.7 %; NUCLEATED RED BLOOD CELLS AUTO 0.7 /100WBC; RED CELL DISTRIBUTION WIDTH 15.6 % (12.0-15.0); UNCORRECTED WHITE BLOOD COUNT 8.5 x10^3/uL; WHITE BLOOD COUNT 8.5 x10^3/uL (4.8-10.8)
== END 2016-07-15 23:59 | disposition home or self-care (01) ==
LOC: LAB.N 16:00
PROVIDERS: ATTEND Internal Medicine
DX: D64.9 Anemia, unspecified (principal)
CPT/HCPCS: 36415; 85025

== ENCOUNTER 2016-08-19 19:44 | Outpatient (CLI) | payer MEDICARE, BC | END 2016-08-19 19:45 | disposition home or self-care (01) | LOC: SC 19:44 | PROVIDERS: ATTEND Internal Medicine Pulmonary Disease | DX: G47.33 Obstructive sleep apnea (adult) (pediatric) (principal); Z68.36 Body mass index [BMI] 36.0-36.9, adult | CPT/HCPCS: 95810 ==

== ENCOUNTER 2016-08-30 11:32 | Emergency (ER) | payer MEDICARE, BC ==
--- NOTE | 2016-08-30 12:12 | ED Physician Documentation ---
PD HPI ABD PAIN - Stated complaint Stated Complaint: WEAKNESS/SOA - Chief complaint Chief Complaint: Abd Pain - History obtained from History obtained from: Patient - Additional information Additional information: 66-year-old woman on home hemodialysis, she is very self-sufficient. She has an occult GI bleed of unclear source despite PillCam, upper endoscopy, tagged red blood cell scan, and needs transfusing every month or 2. She feels weak generally and complains of very mild abdominal pain. She has dark and tarry stools. None of this is out of the ordinary for her. She presents for blood transfusion. Review of Systems Constitutional: denies: Fever, Chills Cardiac: denies: Chest pain / pressure, Palpitations Respiratory: denies: Dyspnea, Cough GI: denies: Nausea, Vomiting PD PAST MEDICAL HISTORY - Past Medical History Cardiovascular: High cholesterol Endocrine/Autoimmune: Type 2 diabetes GI: GI bleed, Other : Dialysis, Other Psych: Depression, Anxiety - Past Surgical History Past Surgical History: Yes - Present Medications Home Medications: Ambulatory Orders Medication Instructions Recorded Confirmed Allopurinol 100 mg PO DAILY 06/05/14 07/12/16 Temazepam [Restoril] 7.5 mg PO DAILY PRN 06/05/14 07/12/16 buPROPion [Wellbutrin Xl] 300 mg PO DAILY 06/05/14 07/12/16 predniSONE [Deltasone] 2.5 mg PO BID 06/05/14 07/12/16 Citalopram Hydrobromide 40 mg PO DAILY 01/27/15 07/12/16 [Citalopram HBr] Furosemide 160 mg PO BID 01/27/15 07/12/16 Sevelamer Carbonate [Renvela] 3 tab PO TID 01/27/15 07/12/16 Calcitriol [Rocaltrol] 0.5 mcg PO DAILY 10/10/15 07/12/16 Calcium Carbonate 1,500 mg PO DAILY 10/10/15 07/12/16 Cinacalcet HCl [Sensipar] 60 mg PO DAILY 10/10/15 07/12/16 Levothyroxine Sodium [Unithroid] 150 mcg PO DAILY 10/10/15 07/12/16 Omeprazole 40 mg PO DAILY 10/10/15 07/12/16 Rosuvastatin Calcium [Crestor] 20 mg PO DAILY 10/10/15 07/12/16 Solifenacin Succinate [Vesicare] 5 mg PO DAILY 10/10/15 07/12/16 Azithromycin [Zithromax] 250 mg PO DAILY #6 tablet 03/19/16 07/12/16 Heparin Sodium,Porcine/Pf [Heparin 1,600 units IV DAILY 03/19/16 07/12/16 1,000 Unit/10 (100/ml)] - Allergies Allergies/Adverse Reactions: Allergies Allergy/AdvReac Type Severity Reaction Status Date / Time adhesive tape Allergy Rash Verified 08/30/16 12:46 promethazine HCl * AdvReac Hallucinati Verified 06/08/16 17:14 [From Phenergan] ons - Social History Does the pt smoke?: No Smoking Status: Never smoker Does the pt drink ETOH?: Yes Does the pt have substance abuse?: No - Immunizations Immunizations are current?: Yes - POLST Patient has POLST: No POLST Status: Full Code PD ED PE NORMAL - Vitals Vital signs reviewed: Yes - General General: Alert and oriented X 3, No acute distress - HEENT HEENT: PERRL, EOMI - Cardiac Cardiac: RRR, Other (3/6 SM LUSB, chronic per pt) - Respiratory Respiratory: No respiratory distress, Clear bilaterally - Abdomen Abdomen: Non tender - Neuro Neuro: Alert and oriented X 3, Normal speech - Psych Psych: Normal mood, Normal affect Results - Vitals Vitals: Vital Signs - 24 hr 08/30/16 11:35 Temperature 36.5 C Heart Rate 90 Respiratory 18 Rate Blood Pressure 140/76 H O2 Saturation 99 Oxygen O2 Source Room air - Labs Labs: Laboratory Tests 08/30/16 12:19 WBC 7.2 RBC 2.16 L Hgb 6.8 L* Hct 19.7 L* MCV 91.2 MCH 31.7 H MCHC 34.8 RDW 17.0 H Plt Count 231 MPV 7.8 L Neut # 5.1 Lymph # 1.1 L [place] # 0.6 Eos # 0.3 Baso # 0.1 Absolute Nucleated RBC 0.00 Nucleated RBCs 0.0 PD MEDICAL DECISION MAKING - ED course ED course: She has a chronic upper GI bleed and requests transfusion, she has had a complete workup without source identification, and does not want admission to the hospital or further treatment other than transfusion. Departure - Departure Disposition: 01 Home, Self Care Clinical Impression: ESRD (end stage renal disease) GI bleed Qualifiers: GI bleed type/associated pathology: unspecified gastrointestinal hemorrhage type Qualified Code(s): K92.2 - Gastrointestinal hemorrhage, unspecified Anemia Qualifiers: Iron deficiency anemia type: chronic blood loss Condition: Stable Record reviewed to determine appropriate education?: Yes Instructions: ED Bleed UGI Stable Comments: Call your doctor to arrange a follow-up appointment, make the next available appointment. In the interim, return anytime if worse or if new symptoms develop. Your blood pressure was elevated today on check into the emergency department. This does not mean that you have hypertension, it is a common phenomenon to come to the emergency department and have elevated blood pressure. I recommend that she see her primary care physician within the week to have it rechecked when you are feeling better.
[2016-08-30 12:46] LABS: BASOPHILS # (AUTO) 0.1 10^3/uL (0.0-0.1); BASOPHILS % (AUTO) 1.2 %; EOSINOPHILS # (AUTO) 0.3 10^3/uL (0.0-0.7); EOSINOPHILS % (AUTO) 3.8 %; LYMPHOCYTES # (AUTO) 1.1 10^3/uL (1.5-3.5); LYMPHOCYTES % (AUTO) 15.6 %; MEAN CORPUSCULAR HEMOGLOBIN 31.7 pg (27.0-31.0); MEAN CORPUSCULAR HGB CONC 34.8 g/dL (32.0-36.0); MEAN CORPUSCULAR VOLUME 91.2 fL (81.0-99.0); MEAN PLATELET VOLUME 7.8 fL (7.9-10.8); MONOCYTES # (AUTO) 0.6 10^3/uL (0.0-1.0); MONOCYTES % (AUTO) 8.4 %; NEUTROPHILS # (AUTO) 5.1 10^3/uL (1.5-6.6); RED BLOOD COUNT 2.16 10^6/uL (4.20-5.40); UNCORRECTED WHITE BLOOD COUNT 7.2 x10^3/uL; WHITE BLOOD COUNT 7.2 x10^3/uL (4.8-10.8)
[2016-08-30 12:47] LABS: HCT - HEMATOCRIT 19.7 % (37.0-47.0); HGB - HEMOGLOBIN 6.8 g/dL (12.0-16.0)
[2016-08-30 18:35] VITALS: BP 134/59
== END 2016-08-30 18:45 | disposition home or self-care (01) ==
LOC: ED 11:32
DX: K92.2 Gastrointestinal hemorrhage, unspecified (principal); D50.0 Iron deficiency anemia secondary to blood loss (chronic); E11.22 Type 2 diabetes mellitus with diabetic chronic kidney disease; N18.6 End stage renal disease; R03.0 Elevated blood-pressure reading, without diagnosis of hypertension; E78.00 Pure hypercholesterolemia, unspecified; F41.9 Anxiety disorder, unspecified; F32.9 Major depressive disorder, single episode, unspecified; K21.9 Gastro-esophageal reflux disease without esophagitis; Z79.52 Long term (current) use of systemic steroids; Z99.2 Dependence on renal dialysis
CPT/HCPCS: 36415; 36430; 85025; 86850; 86900; 86901; 86920; 99283; 99284; P9016

== ENCOUNTER 2016-09-03 09:23 | Outpatient (CLI) | payer MEDICARE, BC | END 2016-09-03 09:24 | disposition home or self-care (01) | LOC: SC 09:23 | PROVIDERS: ATTEND Nurse Practitioner Family | DX: G47.33 Obstructive sleep apnea (adult) (pediatric) (principal) | CPT/HCPCS: 99214; G0463; 99212 ==

== ENCOUNTER 2016-09-30 13:11 | Emergency (ER) | payer MEDICARE, BC ==
[2016-09-30 14:34] LABS: BASOPHILS # (AUTO) 0.1 10^3/uL (0.0-0.1); EOSINOPHILS # (AUTO) 0.3 10^3/uL (0.0-0.7); HCT - HEMATOCRIT 20.4 % (37.0-47.0); LYMPHOCYTES # (AUTO) 0.9 10^3/uL (1.5-3.5); LYMPHOCYTES % (AUTO) 13.1 %; MEAN CORPUSCULAR HEMOGLOBIN 31.1 pg (27.0-31.0); MEAN CORPUSCULAR HGB CONC 33.5 g/dL (32.0-36.0); MEAN CORPUSCULAR VOLUME 93.1 fL (81.0-99.0); MEAN PLATELET VOLUME 6.5 fL (7.9-10.8); MONOCYTES # (AUTO) 0.8 10^3/uL (0.0-1.0); MONOCYTES % (AUTO) 12.6 %; NEUTROPHILS # (AUTO) 4.5 10^3/uL (1.5-6.6); NEUTROPHILS % (AUTO) 69.3 %; RED BLOOD COUNT 2.19 10^6/uL (4.20-5.40); RED CELL DISTRIBUTION WIDTH 17.6 % (12.0-15.0); UNCORRECTED WHITE BLOOD COUNT 6.5 x10^3/uL; WHITE BLOOD COUNT 6.5 x10^3/uL (4.8-10.8)
[2016-09-30 14:36] LABS: HGB - HEMOGLOBIN 6.8 g/dL (12.0-16.0)
[2016-09-30 14:38] LABS: INR 1.2 (0.8-1.2); PT - PROTHROMBIN TIME 13.2 secs (9.9-12.6)
[2016-09-30 14:43] LABS: ALBUMIN/GLOBULIN RATIO 1.2 (1.0-2.2); BILIRUBIN,TOTAL 0.6 mg/dL (0.2-1.0); CALCIUM 7.9 mg/dL (8.5-10.3); POTASSIUM 4.5 mmol/L (3.5-5.0); TOTAL PROTEIN 7.1 g/dL (6.7-8.2)
[2016-09-30 14:44] LABS: CREATININE 9.8 mg/dL (0.4-1.0)
[2016-09-30] MEDS ORDERED: SODIUM CHLORIDE FLUSH 0.9% 10 ML SYRINGE IVP ONE (16:01)
--- NOTE | 2016-09-30 18:30 | ED Physician Documentation ---
History of Present Illness - Stated complaint Stated Complaint: HEMOGLOBIN 7.0 - Chief complaint Chief Complaint: General - Additonal information Additional information: This patient is a 66-year-old female with history of end-stage renal failure on hemodialysis who requires regular transfusions. She has a history of atrial arterial venous malformations and occasionally has bleeding off and on. This is an ongoing issue and she has had capsule endoscopy regular endoscopy, and colonoscopies as well as tagged red blood cell studies. She presents with a complaint of generalized malaise and fatigue with a diagnosis of anemia hemoglobin 7 mg/dL on Friday. She denies any chest pain or shortness of breath her bleeding is actually tapering off and is back to its baseline. Review of systems: For pertinent positive and negatives in the review of systems please see the history of present illness, otherwise all other systems have been reviewed and are negative. Dragon disclaimer: Parts of this medical record were created using voice recognition technology. Because of the inherent limitations of this system, occasional same sounding word substitutions do occur and persist despite proofreading. Please read the document for context. Review of Systems Constitutional: denies: Fever, Chills Respiratory: denies: Dyspnea, Cough GI: reports: Bloody / black stool. denies: Abdominal Swelling, Nausea, Vomiting Neurologic: reports: Generalized weakness. denies: Focal weakness, Numbness, Near syncope PD PAST MEDICAL HISTORY - Past Medical History Past Medical History: Yes Cardiovascular: High cholesterol Endocrine/Autoimmune: Type 2 diabetes GI: GI bleed, Other : Dialysis, Other Psych: Depression, Anxiety - Past Surgical History Past Surgical History: Yes - Present Medications Home Medications: Ambulatory Orders Medication Instructions Recorded Confirmed Allopurinol 100 mg PO DAILY 06/05/14 09/30/16 Temazepam [Restoril] 7.5 mg PO DAILY PRN 06/05/14 09/30/16 buPROPion [Wellbutrin Xl] 300 mg PO DAILY 06/05/14 09/30/16 predniSONE [Deltasone] 2.5 mg PO BID 06/05/14 09/30/16 Citalopram Hydrobromide 40 mg PO DAILY 01/27/15 09/30/16 [Citalopram HBr] Furosemide 160 mg PO BID 01/27/15 09/30/16 Sevelamer Carbonate [Renvela] 3 tab PO TID 01/27/15 09/30/16 Calcitriol [Rocaltrol] 0.5 mcg PO DAILY 10/10/15 09/30/16 Calcium Carbonate 1,500 mg PO DAILY 10/10/15 09/30/16 Cinacalcet HCl [Sensipar] 60 mg PO DAILY 10/10/15 09/30/16 Levothyroxine Sodium [Unithroid] 150 mcg PO DAILY 10/10/15 09/30/16 Omeprazole 40 mg PO DAILY 10/10/15 09/30/16 Rosuvastatin Calcium [Crestor] 20 mg PO DAILY 10/10/15 09/30/16 Solifenacin Succinate [Vesicare] 5 mg PO DAILY 10/10/15 09/30/16 Heparin Sodium,Porcine/Pf [Heparin 1,600 units IV DAILY 03/19/16 09/30/16 1,000 Unit/10 (100/ml)] amLODIPine [Norvasc] 0 mg PO DAILY 09/30/16 09/30/16 - Allergies Allergies/Adverse Reactions: Allergies Allergy/AdvReac Type Severity Reaction Status Date / Time adhesive tape Allergy Rash Verified 09/30/16 13:37 promethazine HCl * AdvReac Hallucinati Verified 09/30/16 13:37 [From Phenergan] ons - Social History Does the pt smoke?: No Smoking Status: Never smoker Does the pt drink ETOH?: Yes Does the pt have substance abuse?: No - Immunizations Immunizations are current?: Yes - POLST Patient has POLST: No POLST Status: Full Code PD ED PE NORMAL - Vitals Vital signs reviewed: Yes - General General: Alert and oriented X 3, No acute distress, Well developed/nourished - HEENT HEENT: Atraumatic - Neck Neck: Supple, no meningeal sign - Cardiac Cardiac: RRR, No murmur - Respiratory Respiratory: No respiratory distress, Clear bilaterally - Abdomen Abdomen: Normal bowel sounds - Female Female : Deferred, Pt declined - Extremities Extremities: No deformity, No tenderness to palpate, Normal ROM s pain - Neuro Neuro: Alert and oriented X 3 - Psych Psych: Normal mood, Normal affect Results - Vitals Vitals: Vital Signs - 24 hr 09/30/16 13:32 Temperature 36 C L Heart Rate 85 Respiratory 20 Rate Blood Pressure 161/79 H O2 Saturation 98 Oxygen O2 Source Room air - Labs Labs: Laboratory Tests 09/30/16 09/30/16 09/30/16 14:17 14:17 14:17 WBC 6.5 RBC 2.19 L Hgb 6.8 L* Hct 20.4 L MCV 93.1 MCH 31.1 H MCHC 33.5 RDW 17.6 H Plt Count 257 MPV 6.5 L Neut # 4.5 Lymph # 0.9 L [place] # 0.8 Eos # 0.3 Baso # 0.1 Absolute Nucleated RBC 0.00 Nucleated RBCs 0.0 PT 13.2 H INR 1.2 Sodium 134 L Potassium 4.5 Chloride 95 L Carbon Dioxide 24 Anion Gap 15.0 H BUN 72 H Creatinine 9.8 H* Estimated GFR (MDRD) 4 L Glucose 83 Calcium 7.9 L Total Bilirubin 0.6 AST 19 ALT 18 Alkaline Phosphatase 75 Total Protein 7.1 Albumin 3.9 Globulin 3.2 Albumin/Globulin Ratio 1.2 Lipase 44 Blood Type Antibody Screen Crossmatch IS Only 09/30/16 09/30/16 14:17 14:17 WBC RBC Hgb Hct MCV MCH MCHC RDW Plt Count MPV Neut # Lymph # [place] # Eos # Baso # Absolute Nucleated RBC Nucleated RBCs PT INR Sodium Potassium Chloride Carbon Dioxide Anion Gap BUN Creatinine Estimated GFR (MDRD) Glucose Calcium Total Bilirubin AST ALT Alkaline Phosphatase Total Protein Albumin Globulin Albumin/Globulin Ratio Lipase Blood Type A POSITIVE Antibody Screen NEGATIVE Crossmatch IS Only See Detail See Detail PD MEDICAL DECISION MAKING - ED course ED course: Patient is a pleasant 66-year-old female who presents with a complaint of anemia and generalized fatigue. This is an ongoing issue. She has had lower GI bleeding off and on for years. Known kidney lubricate the exact cause of the bleeding. She bleeds most of the time. The bleeding is at baseline. Normally here hemoglobin is 9-10 range. She receives 1 unit when she is below 810 2 when she is below 7. Here she clinically shook looks well she is a short stocky female no apparent distress. Her hemoglobin here is 6.8 she will be given 2 units packed red blood cells which are pending. Her EKG shows a normal sinus rhythm normal RI QRS QT interval without ST segment elevation depression or T-wave inversion overall to normal EKG other blood work is unremarkable and consistent with her end-stage renal failure. The patient is currently receiving 1 unit of blood with one more to go she will be discharged when this transfusion is complete Disposition pending transfusion Clinical impression: 1. Acute on recurrent anemia 2. End-stage renal failure on hemodialysis, Epogen, and iron infusions 3. Recurrent chronic gastrointestinal bleeding from AVM
[2016-09-30 19:46] VITALS: BP 176/82
--- NOTE | 2016-10-02 19:12 | ED Physician Documentation ---
ED Addendum - Addendum Addendum: 10/02/16 19:11 Late entry: Took sign out from Dr Marte, briefly ESRD pt with chronic anemia and now acute on chronic anemia. Plan at S/O, 2 units PRBC and dischg. Uneventfully transfused and discharged home in stable condition.
== END 2016-09-30 19:51 | disposition home or self-care (01) ==
LOC: ED 13:11
DX: D64.9 Anemia, unspecified (principal); E11.22 Type 2 diabetes mellitus with diabetic chronic kidney disease; N18.6 End stage renal disease; E78.00 Pure hypercholesterolemia, unspecified; Q27.30 Arteriovenous malformation, site unspecified; K92.2 Gastrointestinal hemorrhage, unspecified; Z99.2 Dependence on renal dialysis; Z79.01 Long term (current) use of anticoagulants
CPT/HCPCS: 36415; 36430; 80053; 83690; 85025; 85610; 86850; 86900; 86901; 86920; 93005; 99283; 99284; P9016

== ENCOUNTER 2016-10-23 09:34 | Outpatient (CLI) | payer MEDICARE, BC | END 2016-10-23 09:35 | disposition home or self-care (01) | LOC: SC 09:34 | PROVIDERS: ATTEND Nurse Practitioner Family | DX: G47.33 Obstructive sleep apnea (adult) (pediatric) (principal) | CPT/HCPCS: 99212; 99214 ==

== ENCOUNTER 2016-10-23 12:18 | Emergency (ER) | payer MEDICARE, BC ==
[2016-10-23 13:40] LABS: BASOPHILS # (AUTO) 0.1 10^3/uL (0.0-0.1); BASOPHILS % (AUTO) 1.1 %; EOSINOPHILS # (AUTO) 0.1 10^3/uL (0.0-0.7); EOSINOPHILS % (AUTO) 1.5 %; HCT - HEMATOCRIT 22.9 % (37.0-47.0); HGB - HEMOGLOBIN 7.7 g/dL (12.0-16.0); LYMPHOCYTES # (AUTO) 0.8 10^3/uL (1.5-3.5); LYMPHOCYTES % (AUTO) 9.2 %; MEAN CORPUSCULAR HEMOGLOBIN 30.9 pg (27.0-31.0); MEAN CORPUSCULAR HGB CONC 33.4 g/dL (32.0-36.0); MEAN CORPUSCULAR VOLUME 92.6 fL (81.0-99.0); MEAN PLATELET VOLUME 6.9 fL (7.9-10.8); MONOCYTES # (AUTO) 0.4 10^3/uL (0.0-1.0); MONOCYTES % (AUTO) 4.4 %; NEUTROPHILS # (AUTO) 7.5 10^3/uL (1.5-6.6); NEUTROPHILS % (AUTO) 83.8 %; RED BLOOD COUNT 2.47 10^6/uL (4.20-5.40); RED CELL DISTRIBUTION WIDTH 17.5 % (12.0-15.0)
--- NOTE | 2016-10-23 14:01 | ED Physician Documentation ---
PD HPI FOCAL NEURO - Stated complaint Stated Complaint: WEAKNESS - Chief complaint Chief Complaint: General - History obtained from History obtained from: Patient - History of Present Illness Timing - onset: How many days ago (2-3 days of general weakness, thinks her blood count may be too low. No URI nor infectious symptoms per se. Had dialysis yesterday.) Timing - duration: Days Timing - details: Gradual onset, Still present Severity of deficit: Moderate Weakness: Other (generalized.) Numbness: No: Face, Arm, Leg Associated symptoms: No: Headache, Nausea / vomiting, Fall, Chest pain Contributing factors: negative: Anticoagulated Baseline status: positive: A&OX3, ambulatory, indep Similar symptoms before: Diagnosis (has felt this way with low blood counts needing transfusion.) Recently seen: Clinic (dialysis yesterday in [place]; usually does home hemodialysis, but had it at dialysis center due to problem with vision currently.) Review of Systems Constitutional: reports: Fatigue. denies: Fever, Chills, Myalgias Nose: denies: Rhinorrhea / runny nose, Congestion Throat: denies: Sore throat Cardiac: denies: Chest pain / pressure Respiratory: denies: Dyspnea, Cough GI: reports: Bloody / black stool (some blood in stool last week, not currently. ). denies: Abdominal Pain, Vomiting, Diarrhea : denies: Dysuria, Frequency Skin: denies: Rash, Lesions Neurologic: reports: Generalized weakness. denies: Near syncope Endocrine: denies: Weight loss Immunocompromised: denies: Immunocompromised PD PAST MEDICAL HISTORY - Past Medical History Cardiovascular: High cholesterol Endocrine/Autoimmune: Type 2 diabetes GI: GI bleed, Other : Dialysis, Other Psych: Depression, Anxiety - Past Surgical History Past Surgical History: Yes - Present Medications Home Medications: Ambulatory Orders Medication Instructions Recorded Confirmed Allopurinol 100 mg PO DAILY 06/05/14 09/30/16 Temazepam [Restoril] 7.5 mg PO DAILY PRN 06/05/14 09/30/16 buPROPion [Wellbutrin Xl] 300 mg PO DAILY 06/05/14 09/30/16 predniSONE [Deltasone] 2.5 mg PO BID 06/05/14 09/30/16 Citalopram Hydrobromide 40 mg PO DAILY 01/27/15 09/30/16 [Citalopram HBr] Furosemide 160 mg PO BID 01/27/15 09/30/16 Sevelamer Carbonate [Renvela] 3 tab PO TID 01/27/15 09/30/16 Calcitriol [Rocaltrol] 0.5 mcg PO DAILY 10/10/15 09/30/16 Calcium Carbonate 1,500 mg PO DAILY 10/10/15 09/30/16 Cinacalcet HCl [Sensipar] 60 mg PO DAILY 10/10/15 09/30/16 Levothyroxine Sodium [Unithroid] 150 mcg PO DAILY 10/10/15 09/30/16 Omeprazole 40 mg PO DAILY 10/10/15 09/30/16 Rosuvastatin Calcium [Crestor] 20 mg PO DAILY 10/10/15 09/30/16 Solifenacin Succinate [Vesicare] 5 mg PO DAILY 10/10/15 09/30/16 Heparin Sodium,Porcine/Pf [Heparin 1,600 units IV DAILY 03/19/16 09/30/16 1,000 Unit/10 (100/ml)] amLODIPine [Norvasc] 0 mg PO DAILY 09/30/16 09/30/16 - Allergies Allergies/Adverse Reactions: Allergies Allergy/AdvReac Type Severity Reaction Status Date / Time adhesive tape Allergy Rash Verified 10/23/16 12:25 promethazine HCl * AdvReac Hallucinati Verified 10/23/16 12:25 [From Phenergan] ons - Social History Does the pt smoke?: No Smoking Status: Never smoker Does the pt drink ETOH?: Yes Does the pt have substance abuse?: No - Family History Family history: reports: Non contributory - Immunizations Immunizations are current?: Yes - POLST Patient has POLST: No POLST Status: Full Code PD ED PE NORMAL - Vitals Vital signs reviewed: Yes - General General: Alert and oriented X 3, No acute distress, Well developed/nourished - HEENT HEENT: Ears normal, Moist mucous membranes, Pharynx benign - Neck Neck: Supple, no meningeal sign, No adenopathy - Cardiac Cardiac: RRR, No murmur - Respiratory Respiratory: Clear bilaterally - Abdomen Abdomen: Soft, Non tender - Female Female : Deferred - Rectal Rectal: Deferred - Back Back: No CVA TTP - Derm Derm: Normal color, Warm and dry - Extremities Extremities: Normal ROM s pain, No edema, No calf tenderness / cord, Other ( left arm fistula without signs of infection. good thrill felt in fistula. ) - Neuro Neuro: Alert and oriented X 3, No motor deficit, No sensory deficit, Normal speech - Psych Psych: Normal mood, Normal affect Results - Vitals Vitals: Vital Signs - 24 hr 10/23/16 10/23/16 10/23/16 12:22 15:00 17:02 Temperature 36.7 C Heart Rate 92 95 87 Respiratory 14 18 20 Rate Blood Pressure 164/81 H 162/81 H O2 Saturation 99 99 95 10/23/16 10/23/16 10/23/16 17:30 17:48 17:57 Temperature 36.7 C Heart Rate 86 95 Respiratory 14 27 H 17 Rate Blood Pressure 150/66 H O2 Saturation 92 Oxygen O2 Source Room air - Labs Labs: Laboratory Tests 10/23/16 10/23/16 10/23/16 13:32 13:32 15:30 WBC 9.0 RBC 2.47 L Hgb 7.7 L Hct 22.9 L MCV 92.6 MCH 30.9 MCHC 33.4 RDW 17.5 H Plt Count 258 MPV 6.9 L Neut # 7.5 H Lymph # 0.8 L [place] # 0.4 Eos # 0.1 Baso # 0.1 Absolute Nucleated RBC 0.00 Nucleated RBCs 0.0 Sodium 135 Potassium 6.9 H* 6.8 H* Chloride 101 Carbon Dioxide 23 Anion Gap 11.0 BUN 59 H Creatinine 6.5 H Estimated GFR (MDRD) 6 L Glucose 113 H POC Whole Bld Glucose Calcium 8.4 L 10/23/16 17:53 WBC RBC Hgb Hct MCV MCH MCHC RDW Plt Count MPV Neut # Lymph # [place] # Eos # Baso # Absolute Nucleated RBC Nucleated RBCs Sodium Potassium Chloride Carbon Dioxide Anion Gap BUN Creatinine Estimated GFR (MDRD) Glucose POC Whole Bld Glucose 240 H Calcium - Rads (name of study) chest Radiology: Prelim report reviewed (no acute process) PD MEDICAL DECISION MAKING - ED course Complexity details: reviewed results, considered differential (blood count not low enough for transfusion. However potassium elevated at 6.9. Patient prefers to hear from Dr. Cohn before treatment. Waited for his return call and he confirmed need to treat, so patient agreed. ), d/w patient, d/w [employer] business intelligence consultant (LEE Cohn - who says patient needs to transfer to [place] for urgent dialysis. ) Departure - Departure Disposition: 02 Transfer Acute Care Hosp Clinical Impression: Weakness, Hyperkalemia, ESRD (end stage renal disease) Anemia Qualifiers: Anemia type: unspecified type Qualified Code(s): D64.9 - Anemia, unspecified Condition: Stable Record reviewed to determine appropriate education?: Yes Discharge Date/Time: 10/23/16 18:05
[2016-10-23 14:09] LABS: CALCIUM 8.4 mg/dL (8.5-10.3); CREATININE 6.5 mg/dL (0.4-1.0)
[2016-10-23 14:10] LABS: POTASSIUM 6.9 mmol/L (3.5-5.0)
[2016-10-23] MEDS ORDERED: SODIUM CHLORIDE 0.9% 250 ML IV ONE (14:17)
[2016-10-23] MEDS ORDERED: SODIUM BICARBONATE ABBOJECT 50 MEQ/50 ML SYRINGE IVP STA (14:18)
[2016-10-23] MEDS ORDERED: INSULIN REGULAR HUMAN 100 UNIT/1 ML 10 ML MDV IVP STA ×2 (14:18→17:54)
[2016-10-23] MEDS ORDERED: DEXTROSE 50% ABBOJECT 25 GM/50 ML SYRINGE IVP STA (14:19)
[2016-10-23] MEDS ORDERED: CALCIUM GLUCONATE 1000 MG/10 ML VIAL IVP STA (14:20)
[2016-10-23] MEDS ORDERED: SODIUM POLYSTYRENE SULFONATE 15 GM/60 ML BOTTLE PO STA (14:20)
[2016-10-23] MEDS ORDERED: CALCIUM GLUCONATE 1000 MG/10 ML VIAL ONE (14:43)
[2016-10-23] MEDS ORDERED: SODIUM POLYSTYRENE SULFONATE 15 GM/60 ML BOTTLE ONE (14:43)
[2016-10-23] MEDS ORDERED: DEXTROSE 50% ABBOJECT 25 GM/50 ML SYRINGE ONE (14:44)
[2016-10-23] MEDS ORDERED: SODIUM BICARBONATE ABBOJECT 50 MEQ/50 ML SYRINGE ONE (14:44)
[2016-10-23] MEDS ORDERED: INSULIN REGULAR HUMAN 100 UNIT/1 ML 10 ML MDV ONE ×2 (14:46→17:58)
--- NOTE | 2016-10-23 14:50 | XRAY Preliminary Report ---
Exam: XR Chest 1 View IMPRESSION: Cardiomegaly with pulmonary vascular congestion appears without significant interval grant . [facility] SITE ID: [id number]
--- NOTE | 2016-10-23 14:53 | XRAY Report ---
EXAM: CHEST RADIOGRAPHY EXAM DATE: 10/23/2016 02:37 PM. CLINICAL HISTORY: Dyspnea. COMPARISON: 06/08/2016. TECHNIQUE: 1 view. FINDINGS: Lungs/Pleura: There is diffuse pulmonary vascular congestion without significant change. No developin g consolidative pneumonia. Mediastinum: Cardiac silhouette is prominent in size. Other: None. IMPRESSION: Cardiomegaly with pulmonary vascular congestion appears without significant interval grant ge. [facility] Referring Provider Line: [phone] SITE ID: [id number]
[2016-10-23] MEDS ORDERED: ALBUTEROL NEB 2.5 MG/3 ML INH STA (16:36)
[2016-10-23] MEDS ORDERED: ALBUTEROL NEB 2.5 MG/3 ML INH ONE (16:56)
[2016-10-23] MEDS ORDERED: SODIUM CHLORIDE FLUSH 0.9% 10 ML SYRINGE IVP ONE (16:59)
[2016-10-23 17:49] VITALS: BP 150/66
== END 2016-10-23 18:05 | disposition short-term general hospital (02) ==
LOC: ED 12:18
DX: E11.22 Type 2 diabetes mellitus with diabetic chronic kidney disease (principal); N18.6 End stage renal disease; Z99.2 Dependence on renal dialysis; D63.1 Anemia in chronic kidney disease; G47.33 Obstructive sleep apnea (adult) (pediatric)
CPT/HCPCS: 36415; 71010; 80048; 84132; 85025; 93005; 94640; 96374; 96375; 99214; 99284; 99285; A9270; G0463; J1815; J7613; 99212

== ENCOUNTER 2016-10-23 18:02 | Outpatient (CLI) | payer MEDICARE, BC | END 2016-10-23 18:03 | disposition short-term general hospital (02) | LOC: EMS 18:02 | PROVIDERS: ATTEND Surgery | DX: R53.1 Weakness (principal); E87.5 Hyperkalemia | CPT/HCPCS: A0170; A0425; A0428 ==

== ENCOUNTER 2016-11-09 14:00 | Emergency (ER) | payer MEDICARE, BC ==
[2016-11-09 15:37] LABS: ALBUMIN/GLOBULIN RATIO 1.3 (1.0-2.2); BILIRUBIN,TOTAL 0.2 mg/dL (0.2-1.0); CALCIUM 8.5 mg/dL (8.5-10.3); CREATININE 3.5 mg/dL (0.4-1.0)
[2016-11-09 16:06] LABS: BASOPHILS % (AUTO) 0.4 %; EOSINOPHILS # (AUTO) 0.1 10^3/uL (0.0-0.7); EOSINOPHILS % (AUTO) 1.5 %; LYMPHOCYTES # (AUTO) 0.9 10^3/uL (1.5-3.5); MEAN CORPUSCULAR HGB CONC 34.5 g/dL (32.0-36.0); MEAN PLATELET VOLUME 7.1 fL (7.9-10.8); MONOCYTES # (AUTO) 0.9 10^3/uL (0.0-1.0); MONOCYTES % (AUTO) 9.3 %; NEUTROPHILS # (AUTO) 7.3 10^3/uL (1.5-6.6); NEUTROPHILS % (AUTO) 78.8 %; NUCLEATED RED BLOOD CELLS AUTO 0.4 /100WBC; RED CELL DISTRIBUTION WIDTH 17.7 % (12.0-15.0); UNCORRECTED WHITE BLOOD COUNT 9.2 x10^3/uL; WHITE BLOOD COUNT 9.2 x10^3/uL (4.8-10.8)
[2016-11-09 16:07] LABS: HCT - HEMATOCRIT 19.5 % (37.0-47.0)
[2016-11-09 16:11] LABS: HGB - HEMOGLOBIN 6.7 g/dL (12.0-16.0)
--- NOTE | 2016-11-09 17:35 | ED Physician Documentation ---
History of Present Illness - Stated complaint Stated Complaint: WEAKNESS - Chief complaint Chief Complaint: Abd Pain - History obtained from History obtained from: Patient - History of Present Illness Timing: How many days ago (2) - Additonal information Additional information: 66-year-old female on hemodialysis Has an AV malformation and requires frequent transfusion. She was called by her editor continuity and script today who asked her to come into the emergency department for transfusion as her hemoglobin was low yesterday at 6.4. She is symptomatic with exertional dyspnea fatigue and rapid heart rate. Review of Systems Constitutional: reports: Fatigue. denies: Fever, Chills Eyes: denies: Decreased vision Ears: denies: Ear pain Nose: denies: Congestion Throat: denies: Sore throat Cardiac: denies: Chest pain / pressure, Palpitations Respiratory: reports: Dyspnea GI: reports: Nausea. denies: Abdominal Pain : denies: Dysuria, Frequency Skin: denies: Rash Musculoskeletal: reports: Back pain. denies: Neck pain Neurologic: reports: Generalized weakness. denies: Focal weakness, Numbness PD PAST MEDICAL HISTORY - Past Medical History Cardiovascular: High cholesterol Endocrine/Autoimmune: Type 2 diabetes GI: GI bleed, Other : Dialysis, Other Psych: Depression, Anxiety - Past Surgical History Past Surgical History: Yes - Present Medications Home Medications: Ambulatory Orders Medication Instructions Recorded Confirmed Allopurinol 100 mg PO DAILY 06/05/14 11/09/16 Temazepam [Restoril] 7.5 mg PO DAILY PRN 06/05/14 11/09/16 buPROPion [Wellbutrin Xl] 300 mg PO DAILY 06/05/14 11/09/16 predniSONE [Deltasone] 2.5 mg PO BID 06/05/14 11/09/16 Citalopram Hydrobromide 40 mg PO DAILY 01/27/15 11/09/16 [Citalopram HBr] Furosemide 160 mg PO BID 01/27/15 11/09/16 Sevelamer Carbonate [Renvela] 3 tab PO TID 01/27/15 11/09/16 Calcitriol [Rocaltrol] 0.5 mcg PO DAILY 10/10/15 11/09/16 Calcium Carbonate 1,500 mg PO DAILY 10/10/15 11/09/16 Cinacalcet HCl [Sensipar] 60 mg PO DAILY 10/10/15 11/09/16 Levothyroxine Sodium [Unithroid] 150 mcg PO DAILY 10/10/15 11/09/16 Omeprazole 40 mg PO DAILY 10/10/15 11/09/16 Rosuvastatin Calcium [Crestor] 20 mg PO DAILY 10/10/15 11/09/16 Solifenacin Succinate [Vesicare] 5 mg PO DAILY 10/10/15 11/09/16 amLODIPine [Norvasc] 0 mg PO DAILY 09/30/16 11/09/16 - Allergies Allergies/Adverse Reactions: Allergies Allergy/AdvReac Type Severity Reaction Status Date / Time adhesive tape Allergy Rash Verified 11/09/16 14:20 promethazine HCl * AdvReac Hallucinati Verified 11/09/16 14:20 [From Phenergan] ons - Social History Does the pt smoke?: No Smoking Status: Never smoker Does the pt drink ETOH?: Yes Does the pt have substance abuse?: No - Immunizations Immunizations are current?: Yes - POLST Patient has POLST: No POLST Status: Full Code PD ED PE NORMAL - Vitals Vital signs reviewed: Yes (tachy ) - General General: No acute distress, Well developed/nourished - HEENT HEENT: Atraumatic, PERRL, EOMI - Neck Neck: Supple, no meningeal sign - Cardiac Cardiac: RRR, Other (2/6 holosystolic murmer at LSB) - Respiratory Respiratory: No respiratory distress, Clear bilaterally - Abdomen Abdomen: Soft, Non tender - Back Back: No CVA TTP, No spinal TTP - Derm Derm: Normal color, Warm and dry, No rash - Extremities Extremities: No deformity, No edema - Neuro Neuro: No motor deficit, No sensory deficit - Psych Psych: Normal mood, Normal affect Results - Vitals Vitals: Vital Signs - 24 hr 11/09/16 14:17 Temperature 36.3 C L Heart Rate 100 Respiratory 20 Rate Blood Pressure 133/72 H O2 Saturation 99 Oxygen O2 Source Room air - Labs Labs: Laboratory Tests 11/09/16 11/09/16 11/09/16 15:00 15:00 15:53 WBC 9.2 RBC 2.10 L Hgb 6.7 L* Hct 19.5 L* MCV 93.0 MCH 32.0 H MCHC 34.5 RDW 17.7 H Plt Count 362 MPV 7.1 L Neut # 7.3 H Lymph # 0.9 L Vermilion # 0.9 Eos # 0.1 Baso # 0.0 Absolute Nucleated RBC 0.04 Nucleated RBCs 0.4 Sodium 135 Potassium 4.0 Chloride 96 L Carbon Dioxide 26 Anion Gap 13.0 BUN 26 H Creatinine 3.5 H Estimated GFR (MDRD) 13 L Glucose 256 H Calcium 8.5 Total Bilirubin 0.2 AST 27 ALT 22 Alkaline Phosphatase 81 Total Protein 7.0 Albumin 4.0 Globulin 3.0 Albumin/Globulin Ratio 1.3 Lipase 54 H Blood Type A POSITIVE Antibody Screen NEGATIVE Crossmatch IS Only See Detail Procedures - IVC sono (time) 1400 Bedside IVC sono: IVC measures (cm) (0.83), IVC collapsed c insp (cm) (complete) , Dehydration PD MEDICAL DECISION MAKING - ED course Complexity details: reviewed old records, reviewed results, re-evaluated patient , considered differential, d/w patient ED course: 66-year-old female with end-stage renal disease on dialysis has developed weakness exertional dyspnea tachycardia and fatigue and was asked to come to the emergency department by her editor continuity and script for blood transfusion. She had her blood drawn 2 days ago her hemoglobin was 6.4. She has had transfusion a number of times with improvement. She does state that she is symptomatic at this time and really feels like she needs about 3 units of blood. She did have 4 liters taken off today and appears to have room for the blood transfusion. She does still make some urine. Departure - Departure Disposition: ED Place in Observation Clinical Impression: Symptomatic anemia
--- NOTE | 2016-11-09 21:23 | ED Physician Documentation ---
ED Addendum - Addendum Addendum: 11/09/16 21:22 The nighttime hospitalist, Dr. salas, discussed the case with me and came to see the patient. The patient described some symptoms of lightheadedness and dyspnea. However she was improving having gotten 1 unit of blood at this point here in the ER. Dr. isabel felt the patient did not meet admission criteria and declined to place the patient in observation. We will continue the transfusion here in the ER and transfer to discharge her from the ER when complete.
[2016-11-09 23:10] LABS: HCT - HEMATOCRIT 25.3 % (37.0-47.0); HGB - HEMOGLOBIN 8.5 g/dL (12.0-16.0); MEAN CORPUSCULAR HEMOGLOBIN 30.6 pg (27.0-31.0); MEAN CORPUSCULAR HGB CONC 33.4 g/dL (32.0-36.0); MEAN CORPUSCULAR VOLUME 91.6 fL (81.0-99.0); MEAN PLATELET VOLUME 6.8 fL (7.9-10.8); RED BLOOD COUNT 2.76 10^6/uL (4.20-5.40); RED CELL DISTRIBUTION WIDTH 17.1 % (12.0-15.0); WHITE BLOOD COUNT 8.6 x10^3/uL (4.8-10.8)
[2016-11-09 23:31] VITALS: BP 155/83
--- NOTE | 2016-11-10 09:06 | CONSULTATION NOTE ---
DATE OF CONSULTATION: 11/09/2016 8 pm REQUESTING PROVIDER: ER physicians Dr. Lopez/Dr. Pool REASON FOR CONSULTATION: I evaluated this patient for possible admission. CHIEF COMPLAINT: Hemoglobin of 6.7. HISTORY OF PRESENT ILLNESS: The patient is a 66-year-old white female with past medical history of end-stage renal disease on dialysis Friday, , Friday and with history of chronic anemia secondary to chronic ongoing gastrointestinal bleed, most likely secondary to arteriovenous malformations. Notably, this patient underwent extensive outpatient evaluation which included capsule endoscopy and further tests are planned to find the exact source of bleed. So far, attempts to find the source of bleed and to stop the bleed have been unsuccessful, and most recently, at least during the past 6 months, the patient has been managed by periodic blood transfusions. The patient tells me that she receives transfusion every 6 weeks. She was admitted to [facility] to receive transfusion for symptomatic anemia back in 06/2016. Since then, she received transfusion at least twice. She is supposed to go to the [facility] clinic or at times she was sent to [place] as well. The patient, however, tells me that receiving transfusion in the ER takes less time and she prefers to come to the ER for transfusions. How her transfusions are arranged and what is the exact outpatient procedure she goes through is unclear, but she tells me that in this particular time her apprentice lineman [employer] called her and told her that her hemoglobin was 6.7 and this is why she came to the ER to receive transfusion. She also tells me that she has no means of transportation or getting home tonight. Therefore, she wishes to be admitted to the hospital. Regarding her symptoms, initially she tells me that she has no nausea, vomiting, abdominal pain or fever. Her bowel movements are regular, she has 3-4 small stools daily and usually the stools are black but occasionally brown. There is no recent change in the character of her stools. There is no change in the amount or in the frequency. She does not report seeing cinthia blood in her stool. She does not report fainting, although she tells me that when her potassium gets too high she has a tendency to fall. She denies syncopal episodes. She does not complain of palpitations. She does complain, however, of being exhausted and having difficulty tolerating physical activity; however, that has been going on for 3 years without recent change. In particular, she offers no new exertional symptoms, denies chest pain or shortness of breath. Interestingly, when I tell the patient that based on her stable vital signs and chronic nature of her problems, and based on the fact that she already received a unit transfusion in the ER, she does not need to be admitted to the hospital and there is no reason to observe her either, she tells me that she actually feels dizzy. Interestingly, she did deny dizziness when I asked her previously. Then when I discuss her stable vital signs, she again tells me that she has no means to get home; therefore, she needs to stay and be admitted to the hospital. ER workup reviewed per electronic medical record. The patient's baseline hemoglobin is usually between 7 and 8. She confirmed that. I reviewed laboratory work; chemistry panel is consistent with history of renal disease. Reviewed vital signs per EMR, during past visits HR had never been below 80. Current vital signa are stable with HR in the high 80s-low 90s. PAST MEDICAL HISTORY 1. End-stage renal disease on hemodialysis secondary to focal segmental glomerulonephritis diagnosed in 2004, status post transplant in 2006, failed transplant and back on dialysis in 2012. Dialysis days are Friday, , and Friday. 2. History of GI bleed with extensive workup. The slow GI bleed is most likely secondary to AVMs, the patient requires periodic transfusions. 3. Chronic anemia secondary to chronic gastrointestinal blood loss/ plus chr renal disease. The patient's baseline hemoglobin is between 7 and 8. 4. Hypertension. 5. Dyslipidemia. 6. Diabetes. 7. Abdominal hernia. OUTPATIENT MEDICATIONS: Reviewed per electronic medical record. REVIEW OF SYSTEMS: Please see pertinent positives and pertinent negatives listed above in history of present illness. A complete 12-point review was otherwise negative. ALLERGIES: PROMETHAZINE. SOCIAL HISTORY: The patient does not smoke. She is functional with activities of daily living. FAMILY HISTORY: Reviewed and noncontributory to current presentation. Notably, the patient's brother has type 2 diabetes. CODE STATUS: FULL CODE. PHYSICAL EXAMINATION VITAL SIGNS: Temperature 36.7, heart rate 90, blood pressure 139/75, respiration rate 18, oxygen saturation 97% on room air. GENERAL: The patient is a well-developed female who is not in distress. HEENT: Pale oral mucosa. SKIN: No jaundice, mild pallor. CARDIOVASCULAR: S1, S2 regular with harsh murmur best heard on the apex. RESPIRATORY: Clear to auscultation without wheezes or crackles. EXTREMITIES: No lymphedema. MUSCULOSKELETAL: Unremarkable. NEUROLOGIC: Alert, oriented, nonfocal. PSYCH: Cooperative. ABDOMEN: With large hernia, bowel sounds present, obese, soft, benign, nontender. ASSESSMENT AND PLAN/ACTIVE ISSUES/DIAGNOSES 1. The patient has chronic anemia secondary to chronic slow gastrointestinal bleed, so far unknown etiology, thought to be secondary to arteriovenous malformations. Outpatient workup is still ongoing. a. The patient is hemodynamically stable with stable vital signs. b. There is no change in the character of gastrointestinal bleed. c. There are no symptoms to indicate symptomatic anemia. Of note, the patient has chronic symptoms, which include chronic fatigue but denied shortness of breath, chest pain, dizziness, fainting, and she only reported feeling dizzy and contradicted herself after I told her that she did not need hospital admission. d. The patient's baseline hemoglobin is between 7-8; therefore, she would need 1 unit packed red blood cell transfusion, which was already given in the emergency room. The patient remained stable during transfusion and at the time of my bedside exam the transfusion was near being finished. Therefore, the patient does not need further monitoring, hospital admission or observation. If more transfusion needed, she can have that done as an outpatient or she could have a second unit ordered and be given in the emergency room if the emergency room physician feels that is appropriate. 2. End-stage renal disease on hemodialysis. The patient underwent dialysis earlier on 11/09/2016. She has a chemistry panel consistent with end-stage renal disease; however, unremarkable electrolytes. There is no sign of fluid overload or any red flag which would require monitoring. 3. Hyperglycemia with history of diabetes. Blood glucose, however, is below 300. Therefore, does not require hospital admission. We will recommend better glycemic control. In addition, this glucose was not fasting. 4. Social issues. The patient reports that she does not have resources or means to get home, and she requested to be kept in the hospital out of convenience. We will request social work to assist with discharge plans. 5. Regarding chronic medical problems, I would recommend continuing outpatient medications unchanged. 6. Regarding the question if the patient should be admitted to the hospital or she should be observed, my assessment is that the patient does not meet admission criteria. Regarding observation issues, there is no new diagnosis we entertain or we would like to work up or monitor to keep this patient under observation status. Therefore, she does not meet observation criteria either. Notably, the patient has chronic conditions and she should be getting outpatient blood transfusions. I asked the patient about what is the usual outpatient process for her to get transfusions, and she provided somewhat vague answer. It seems, however, from what she says, that she comes to the emergency room because that takes the least amount of time and she feels that is the most convenient way. Time spent in evaluation of this patient including coordination of the care, discussing with daytime hospitalist, ER doctor, and getting information from the medical chart was 1 hour. JOB #: [id number] EXT JOB #:[id number] [email or web address]
== END 2016-11-09 23:45 | disposition home or self-care (01) ==
LOC: ED 14:00
DX: D64.9 Anemia, unspecified (principal); E11.22 Type 2 diabetes mellitus with diabetic chronic kidney disease; I12.0 Hypertensive chronic kidney disease with stage 5 chronic kidney disease or end stage renal disease; N18.6 End stage renal disease; Z99.2 Dependence on renal dialysis
CPT/HCPCS: 36415; 36430; 80053; 83690; 85025; 85027; 86850; 86900; 86901; 86920; 99283; 99284; P9016

== ENCOUNTER 2017-04-26 13:31 | Outpatient (CLI) | payer MEDICARE, BC ==
--- NOTE | 2017-04-28 08:45 | XRAY Report ---
EXAM: LUMBOSACRAL SPINE RADIOGRAPHY EXAM DATE: 04/26/2017 01:57 PM. CLINICAL HISTORY: Acute on chronic low back pain. COMPARISONS: None. TECHNIQUE: 2 views. FINDINGS: Alignment: 6 degree convex left lumbar scoliosis. 3 mm grade 1 anterolisthesis of L4 on L5 vertebral body. Bones: Five [id number] lumbar vertebral bodies are present. No fractures or bone lesions. Disks: Moderate loss of disk space height at L3-L4 through L5-S1 levels. Facets: Hypertrophic changes at L5-S1 level. Sacroiliac Joints: Unremarkable. Soft Tissues: Air-fluid levels are noted within relatively featureless appearing transverse colon. r overlying right groin, question if related to inguinal hernia versus abdominal pannus. IMPRESSION: 1. Moderate mid to lower lumbar spine degenerative changes. 2. No fracture evident. 3. Lucency overlying right groin, question if related to inguinal hernia. 4. Relatively featureless transverse colon with air-fluid levels. Question ileus. [facility] Referring Provider Line: [phone] SITE ID: [id number]
== END 2017-04-26 13:32 | disposition home or self-care (01) ==
LOC: DI 13:31
PROVIDERS: ATTEND Family Medicine
DX: M51.36 Other intervertebral disc degeneration, lumbar region (principal); M47.897 Other spondylosis, lumbosacral region; M51.37 Other intervertebral disc degeneration, lumbosacral region
CPT/HCPCS: 72100

== ENCOUNTER 2017-05-01 08:59 | Outpatient (CLI) | payer MEDICARE, BC | END 2017-05-01 09:00 | disposition critical access hospital (66) | LOC: EMS 08:59 | PROVIDERS: ATTEND Surgery | DX: M54.5 Low back pain (principal) | CPT/HCPCS: A0425; A0429 ==

== ENCOUNTER 2017-05-01 09:19 | Emergency (ER) | payer MEDICARE, BC ==
[2017-05-01] MEDS ORDERED: SODIUM CHLORIDE 0.9% 1,000 ML IV ONE (09:59)
[2017-05-01] MEDS ORDERED: HYDROmorphone 1 MG/ML SYRINGE IVP STA (09:59)
[2017-05-01] MEDS ORDERED: diazePAM INJ 5 MG/ML SYRINGE IVP STA (10:00)
[2017-05-01] MEDS ORDERED: LIDOCAINE PATCH 5% TOP STA (10:00)
--- NOTE | 2017-05-01 10:02 | ED Physician Documentation ---
PD HPI BACK PAIN - Stated complaint Stated Complaint: BACK PX - Chief complaint Chief Complaint: Back Pain - History obtained from History obtained from: Patient, EMS - History of Present Illness Timing - onset: How many weeks ago (2) Timing - duration: Weeks (2) Timing - details: Gradual onset Pain level max: 10 Pain level now: 10 Location: Lower, Right Quality: Pain, Spasm, Similar to prior episodes Associated symptoms: No: Fever, Weakness, Numbness, Incontinent of urine, Unable to urinate, Hematuria, Incontinent of stool Improves with: Rest Worsened by: Movement, Twisting Contributing factors: No: Cancer, IVDA Similar symptoms before: Diagnosis (low back strain) Recently seen: Clinic (x2 for same, negative xrays. On oxycodone and soma. States still having pain. can't use nsaids 2/2 CKD.) Review of Systems Constitutional: denies: Fever, Chills Ears: denies: Ear pain Nose: denies: Rhinorrhea / runny nose, Congestion Throat: denies: Sore throat Cardiac: denies: Chest pain / pressure Respiratory: denies: Cough GI: denies: Nausea, Vomiting, Diarrhea Skin: denies: Rash Musculoskeletal: denies: Neck pain Neurologic: denies: Focal weakness, Numbness, Headache PD PAST MEDICAL HISTORY - Past Medical History Past Medical History: Yes Cardiovascular: High cholesterol Endocrine/Autoimmune: Type 2 diabetes GI: GI bleed, Other : Dialysis, Other Psych: Depression, Anxiety Musculoskeletal: Chronic back pain - Past Surgical History Past Surgical History: Yes - Present Medications Home Medications: Ambulatory Orders Medication Instructions Recorded Confirmed Allopurinol 100 mg PO DAILY 06/05/14 11/09/16 Temazepam [Restoril] 7.5 mg PO DAILY PRN 06/05/14 11/09/16 buPROPion [Wellbutrin Xl] 300 mg PO DAILY 06/05/14 11/09/16 predniSONE [Deltasone] 2.5 mg PO BID 06/05/14 11/09/16 Citalopram Hydrobromide 40 mg PO DAILY 01/27/15 11/09/16 [Citalopram HBr] Furosemide 160 mg PO BID 01/27/15 11/09/16 Sevelamer Carbonate [Renvela] 3 tab PO TID 01/27/15 11/09/16 Calcitriol [Rocaltrol] 0.5 mcg PO DAILY 10/10/15 11/09/16 Calcium Carbonate 1,500 mg PO DAILY 10/10/15 11/09/16 Cinacalcet HCl [Sensipar] 60 mg PO DAILY 10/10/15 11/09/16 Levothyroxine Sodium [Unithroid] 150 mcg PO DAILY 10/10/15 11/09/16 Omeprazole 40 mg PO DAILY 10/10/15 11/09/16 Rosuvastatin Calcium [Crestor] 20 mg PO DAILY 10/10/15 11/09/16 Solifenacin Succinate [Vesicare] 5 mg PO DAILY 10/10/15 11/09/16 amLODIPine [Norvasc] 0 mg PO DAILY 09/30/16 11/09/16 Lidocaine Patch 5% [Lidoderm Patch] 1 patch TOP DAILY PRN #10 patch 05/01/17 diazePAM [Valium] 5 - 10 mg PO TID PRN #15 tablet 05/01/17 - Allergies Allergies/Adverse Reactions: Allergies Allergy/AdvReac Type Severity Reaction Status Date / Time adhesive tape Allergy Rash Verified 05/01/17 09:37 promethazine HCl * AdvReac Hallucinati Verified 05/01/17 09:37 [From Phenergan] ons - Social History Does the pt smoke?: No Smoking Status: Never smoker Does the pt drink ETOH?: Yes Does the pt have substance abuse?: No - Immunizations Immunizations are current?: Yes - POLST Patient has POLST: No POLST Status: Full Code PD ED PE NORMAL - Vitals Vital signs reviewed: Yes - General General: Alert and oriented X 3 - HEENT HEENT: Moist mucous membranes, Pharynx benign - Neck Neck: Supple, no meningeal sign, No bony TTP - Cardiac Cardiac: RRR - Respiratory Respiratory: No respiratory distress, Clear bilaterally - Abdomen Abdomen: Soft, Non tender, Non distended - Back Back: No spinal TTP, Other (Paraspinal spasm low lumbar. No midline tenderness to palpation or percussion.) - Derm Derm: Warm and dry - Extremities Extremities: No deformity, No tenderness to palpate - Neuro Neuro: Alert and oriented X 3, No motor deficit, No sensory deficit - Psych Psych: Normal mood, Normal affect Results - Vitals Vitals: Vital Signs - 24 hr 05/01/17 05/01/17 05/01/17 09:30 11:29 12:17 Temperature 36.2 C L 36.5 C Heart Rate 98 93 92 Respiratory 16 15 20 Rate Blood Pressure 144/69 H 135/67 H 134/81 H O2 Saturation 96 97 100 Oxygen O2 Source Room air PD MEDICAL DECISION MAKING - ED course Complexity details: reviewed results, re-evaluated patient, considered differential (no cauda equina, no spinal epidural abscess, no fracture, no aortic dissection or evidence of aneursym rupture), d/w patient, d/w family ED course: Patient is a 67-year-old female who presents to the emergency department with acute on chronic back pain. Had negative x-rays a few days ago. No numbness or tingling. No bowel incontinence. No evidence of epidural abscess or cauda equina. No evidence of fracture. Pain well controlled. We will have her follow-up with her doctor for further evaluation and care. Also consulted social work who spoke with her doctor and will set up home PT for this weekend. Patient counseled regarding signs and symptoms for which I believe and urgent re-evaluation would be necessary. Patient with good understanding of and agreement to plan and is comfortable going home at this time This document was made in part using voice recognition software. While efforts are made to proofread this document, sound alike and grammatical errors may occur. Departure - Departure Disposition: 01 Home, Self Care Clinical Impression: Back spasm Condition: Good Instructions: ED Spasm Back No Trauma Follow-Up: René Wood MD [Primary Care Provider] - Within 1 week Prescriptions: diazePAM [Valium] 5 - 10 mg PO TID PRN #15 tablet PRN Reason: Spasms Lidocaine Patch 5% [Lidoderm Patch] 1 patch TOP DAILY PRN #10 patch PRN Reason: pain Comments: Return if you worsen. do not take the valium with soma. You can continue the oxycodone as well. Discharge Date/Time: 05/01/17 14:13
[2017-05-01 12:17] VITALS: BP 134/81
[2017-05-01] MEDS ORDERED: diazePAM INJ 5 MG/ML SYRINGE IM STA (13:02)
== END 2017-05-01 14:13 | disposition home or self-care (01) ==
LOC: ED 09:19
DX: M62.830 Muscle spasm of back (principal); G89.29 Other chronic pain; E11.9 Type 2 diabetes mellitus without complications
CPT/HCPCS: 96361; 96372; 96374; 96375; 99283; 99284; A9270; J1170

== ENCOUNTER 2017-05-10 07:11 | Outpatient (CLI) | payer MEDICARE, BC | END 2017-05-10 07:12 | disposition critical access hospital (66) | LOC: EMS 07:11 | PROVIDERS: ATTEND Surgery | DX: M54.5 Low back pain (principal) | CPT/HCPCS: A0425; A0429 ==

== ENCOUNTER 2017-05-10 07:33 | Emergency (ER) | payer MEDICARE, BC ==
[2017-05-10] MEDS ORDERED: MORPHINE 2 MG/ML CARPUJECT IVP STA (07:40)
[2017-05-10] MEDS ORDERED: LIDOCAINE PATCH 5% TOP STA (07:40)
--- NOTE | 2017-05-10 07:56 | ED Physician Documentation ---
History of Present Illness - Stated complaint Stated Complaint: BACK PX - Chief complaint Chief Complaint: Back Pain - Additonal information Additional information: hx from pt and EMS 67 female ESRD s/p failed transplant not immunosupressed hemodialysis has had approx 1 month of severe sharp right lumber region pain worse with movement denies abd pain (but is tender to palp) no fever no CP cough SOA no NVD does not make urine no numbness or weakness except as limited by pain has been seen by PMD and ER for same, had xrays Review of Systems Constitutional: denies: Fever, Chills Cardiac: denies: Chest pain / pressure Respiratory: denies: Dyspnea, Cough GI: denies: Abdominal Pain, Nausea, Vomiting, Diarrhea : reports: Other (renal failure no urine) Musculoskeletal: reports: Back pain Neurologic: denies: Focal weakness, Numbness Immunocompromised: denies: Immunocompromised PD PAST MEDICAL HISTORY - Past Medical History Cardiovascular: High cholesterol Endocrine/Autoimmune: Type 2 diabetes GI: GI bleed, Other : Dialysis, Other Psych: Depression, Anxiety Musculoskeletal: Chronic back pain - Past Surgical History Past Surgical History: Yes - Present Medications Home Medications: Ambulatory Orders Medication Instructions Recorded Confirmed Allopurinol 100 mg PO DAILY 06/05/14 05/10/17 Temazepam [Restoril] 7.5 mg PO DAILY PRN 06/05/14 05/10/17 buPROPion [Wellbutrin Xl] 300 mg PO DAILY 06/05/14 05/10/17 predniSONE [Deltasone] 5 mg PO DAILY 06/05/14 05/10/17 Citalopram Hydrobromide 40 mg PO DAILY 01/27/15 05/10/17 [Citalopram HBr] Sevelamer Carbonate [Renvela] 3 tab PO TID 01/27/15 05/10/17 Calcitriol [Rocaltrol] 0.5 mcg PO DAILY 10/10/15 05/10/17 Calcium Carbonate 1,500 mg PO DAILY 10/10/15 05/10/17 Cinacalcet HCl [Sensipar] 60 mg PO DAILY 10/10/15 05/10/17 Levothyroxine Sodium [Unithroid] 200 mcg PO DAILY 10/10/15 05/10/17 Omeprazole 40 mg PO DAILY 10/10/15 05/10/17 Rosuvastatin Calcium [Crestor] 20 mg PO DAILY 10/10/15 05/10/17 amLODIPine [Norvasc] 15 mg PO DAILY 09/30/16 05/10/17 Lidocaine Patch 5% [Lidoderm Patch] 1 patch TOP DAILY PRN #10 patch 05/01/17 diazePAM [Valium] 5 - 10 mg PO TID PRN #15 tablet 05/01/17 05/10/17 oxyCODONE [Roxicodone] 5 mg PO Q4-6H #12 tablet 05/10/17 - Allergies Allergies/Adverse Reactions: Allergies Allergy/AdvReac Type Severity Reaction Status Date / Time adhesive tape Allergy Rash Verified 05/01/17 09:37 promethazine HCl * AdvReac Hallucinati Verified 05/01/17 09:37 [From Phenergan] ons - Social History Does the pt smoke?: No Smoking Status: Never smoker Does the pt drink ETOH?: Yes Does the pt have substance abuse?: No - Immunizations Immunizations are current?: Yes - POLST Patient has POLST: No POLST Status: Full Code PD ED PE NORMAL - Vitals Vital signs reviewed: Yes - General General: Alert and oriented X 3 - HEENT HEENT: Atraumatic - Neck Neck: Supple, no meningeal sign - Cardiac Cardiac: RRR - Respiratory Respiratory: No respiratory distress, Clear bilaterally - Abdomen Abdomen: Soft, Other (large right lower quad ventral hermnia, diffuse abd TTP s rebound or guarding, no pulsatile mass appreciated but BMI is 34) - Back Back: No spinal TTP, Other (mostly right lumabr region TTP and extreme pain with any movement, no rash, no focal bony spine TTP redness or swelling) - Derm Derm: Normal color - Extremities Extremities: No deformity - Neuro Neuro: Alert and oriented X 3, No motor deficit, No sensory deficit, Other ( painful to move legs but hip flex knee ext foot dorsi plantar and great toe ext are intact, no clonus, neg SLR, nl sensation) Results - Vitals Vitals: Vital Signs - 24 hr 05/10/17 05/10/17 07:35 09:48 Temperature 36.7 C Heart Rate 88 74 Respiratory 18 16 Rate Blood Pressure 119/57 L 136/62 H O2 Saturation 99 93 Oxygen O2 Source Room air - Labs Labs: Laboratory Tests 05/10/17 05/10/17 07:54 07:54 WBC 11.8 H RBC 3.43 L Hgb 10.5 L Hct 30.6 L MCV 89.2 MCH 30.4 MCHC 34.1 RDW 15.4 H Plt Count 301 MPV 7.5 L Neut # 10.3 H Lymph # 0.5 L [place] # 0.9 Eos # 0.1 Baso # 0.1 Absolute Nucleated RBC 0.00 Nucleated RBC % 0.0 Sodium 128 L Potassium 5.4 H Chloride 87 L Carbon Dioxide 24 Anion Gap 17.0 H BUN 59 H Creatinine 7.3 H* Estimated GFR (MDRD) 6 L Glucose 206 H Calcium 9.3 Total Bilirubin 0.6 AST 28 ALT 33 Alkaline Phosphatase 91 Total Protein 7.7 Albumin 3.4 Globulin 4.3 H Albumin/Globulin Ratio 0.8 L Lipase 45 - Rads (name of study) CT AP non con 2.2 ESRD Radiology: See rad report (no acute process - nl bones, [place] kidneys and RLQ transplant kidney are atrophic, large R ventral hernia contains bowel but not strangulated or incacerated, appendic vis and normal, no AAA, gallsotnes without wall thickening or pericholecystic fluid and nl ducts) PD MEDICAL DECISION MAKING - ED course ED course: CT = no AAA or retroperitoneal hemorrhage abscess ect, no retroflexed appendicitis, all kidneys atrophic, henria not incarerated or starngulated, nl bones s mets etc labs reviewed : ESRD not new, hyponatremia not new though slightly worse than prior (would not give IVF as pt is dialysis dependent but should be addressed in her next dialysis session) K 5.4 will also be addressed in dialysis and not high enough to merit emergent dialysis apin is not spinal and pt has no fever so doubt epidural abscess having ruled out more emergent causes of right lower lumbar pain will tx as soft tissue pt states valium not working chart review indicates pt already has lido patches soma valum and oxycodone for same and that on 05/[address] Navarro spoke directly to PMD to arrange fup and PT will dc pt has lido patches states valium not helping states hydrocodone did not help but oxycodone did and now she is out so will rx enough of that to last till [place] when pt can see pMD for ongoing care Departure - Departure Disposition: 01 Home, Self Care Clinical Impression: Back pain Qualifiers: Back pain location: low back pain Chronicity: unspecified Back pain laterality : right Sciatica presence: without sciatica Qualified Code(s): M54.5 - Low back pain Condition: Good Instructions: ED Neck Back Pain General Follow-Up: René Wood MD [Primary Care Provider] - (for ongoing pain management) Prescriptions: oxyCODONE [Roxicodone] 5 mg PO Q4-6H #12 tablet Comments: The CT scan did not show any new problem to explain the pain - you have the hernia and gallstones but no aneurysm abscess appendicitis to explain the right low back pain. So it seem the pain is muscular and I have written for enough oxycodone to last you till Friday when you can see you PMD Also your potassium was a little high and you sodium was low both of which should be addressed at your next dialysis session
[2017-05-10 07:58] LABS: BASOPHILS # (AUTO) 0.1 10^3/uL (0.0-0.1); BASOPHILS % (AUTO) 0.7 %; EOSINOPHILS # (AUTO) 0.1 10^3/uL (0.0-0.7); EOSINOPHILS % (AUTO) 0.6 %; HGB - HEMOGLOBIN 10.5 g/dL (12.0-16.0); LYMPHOCYTES # (AUTO) 0.5 10^3/uL (1.5-3.5); LYMPHOCYTES % (AUTO) 4.6 %; MEAN CORPUSCULAR HEMOGLOBIN 30.4 pg (27.0-31.0); MEAN CORPUSCULAR HGB CONC 34.1 g/dL (32.0-36.0); MEAN CORPUSCULAR VOLUME 89.2 fL (81.0-99.0); MEAN PLATELET VOLUME 7.5 fL (7.9-10.8); MONOCYTES # (AUTO) 0.9 10^3/uL (0.0-1.0); MONOCYTES % (AUTO) 7.2 %; NEUTROPHILS # (AUTO) 10.3 10^3/uL (1.5-6.6); NEUTROPHILS % (AUTO) 86.9 %; PLT - PLATELET COUNT 301 10^3/uL (130-450); RED BLOOD COUNT 3.43 10^6/uL (4.20-5.40); RED CELL DISTRIBUTION WIDTH 15.4 % (12.0-15.0); WHITE BLOOD COUNT 11.8 x10^3/uL (4.8-10.8)
[2017-05-10 08:32] LABS: ALBUMIN 3.4 g/dL (3.2-5.5); ALBUMIN/GLOBULIN RATIO 0.8 (1.0-2.2); BILIRUBIN,TOTAL 0.6 mg/dL (0.2-1.0); CALCIUM 9.3 mg/dL (8.5-10.3); TOTAL PROTEIN 7.7 g/dL (6.7-8.2)
[2017-05-10 08:33] LABS: CREATININE 7.3 mg/dL (0.4-1.0)
--- NOTE | 2017-05-10 08:55 | CT Report ---
EXAM: CT ABDOMEN AND PELVIS EXAM DATE: 05/10/2017 08:29 AM. CLINICAL HISTORY: Right low back pain and abd TTP. COMPARISONS: None. TECHNIQUE: Routine helical CT imaging was performed through the abdomen and pelvis. IV contrast: Amt/ type. Enteric contrast: No. Reconstructions: Coronal and sagittal. In accordance with CT protocol optimization, one or more of the following dose reduction techniques w ere utilized for this exam: automated exposure control, adjustment of mA and/or KV based on patient s ize, or use of iterative reconstructive technique. FINDINGS: Lung Bases: Unremarkable. Liver: Normal. No masses. Gallbladder/Bile Ducts: Multiple stones layering in the dependent portion gallbladder. No gallbladder wall thickening or pericholecystic fluid. No intrahepatic or extrahepatic biliary ductal dilatation. Spleen: Normal. Pancreas: Normal. Adrenal Glands: Normal. Kidneys: The kidneys are atrophic. No hydronephrosis or renal calculus. There is a right pelvic kidne y which is also atrophic. No hydronephrosis or perinephric fluid collection. Peritoneal Cavity/Bowel: Large right ventral hernia containing multiple loops of nondilated small and large bowel measuring 7.5 cm the neck. The appendix is well visualized and normal. Pelvic Organs: Normal. The bladder and visualized pelvic organs are within normal limits. Vasculature: No aneurysms or other significant abnormality. Bones: No significant abnormality. Other: None. IMPRESSION: 1. No bowel structure no inflammatory process associated with the bowel. 2. Large right-sided ventral hernia containing multiple loops of nondilated small and large bowel. 3. The [place] kidneys are atrophic. There is a right pelvic renal transplant which is also atrophic. No hydronephrosis or renal calculus identified. 4. No free air or fluid in the abdomen or pelvis. 5. Cholelithiasis without cholecystitis. [facility] Referring Provider Line: [phone] SITE ID: [id number]
--- NOTE | 2017-05-10 08:55 | CT Preliminary Report ---
Exam: CT ABDOMEN/PELVIS W/O IMPRESSION: 1. No bowel structure no inflammatory process associated with the bowel. 2. Large right-sided ventral hernia containing multiple loops of nondilated small and large bowel. 3. The [place] kidneys are atrophic. There is a right pelvic renal transplant which is also atrophic. No hydronephrosis or renal calculus identified. 4. No free air or fluid in the abdomen or pelvis. 5. Cholelithiasis without cholecystitis. [facility] SITE ID: [id number]
[2017-05-10 11:12] VITALS: BP 135/75
== END 2017-05-10 11:18 | disposition home or self-care (01) ==
LOC: ED 07:33
DX: M54.5 Low back pain (principal); K43.9 Ventral hernia without obstruction or gangrene; K80.80 Other cholelithiasis without obstruction; E87.5 Hyperkalemia; E87.1 Hypo-osmolality and hyponatremia; E11.22 Type 2 diabetes mellitus with diabetic chronic kidney disease; N18.6 End stage renal disease; Z99.2 Dependence on renal dialysis; Z94.0 Kidney transplant status; E78.00 Pure hypercholesterolemia, unspecified
CPT/HCPCS: 36415; 74176; 80053; 83690; 85025; 96374; 99284; A9270

== ENCOUNTER 2017-05-17 13:56 | Outpatient (CLI) | payer MEDICARE, BC ==
--- NOTE | 2017-05-17 23:27 | MRI Report ---
EXAM: MRI LUMBAR SPINE WITHOUT CONTRAST EXAM DATE: 05/17/2017 03:38 PM. CLINICAL HISTORY: SEVERE WORSENING LBP. COMPARISON: CT abdomen and pelvis 05/10/2017. TECHNIQUE: Multiplanar, multisequence T1-weighted and fluid-sensitive sequences of the lumbar spine f rom T12 to S1 without contrast. Other: None. FINDINGS: Spinal Cord: The conus terminates at L1. The thoracic cord inferior to T10 is negative for signal abn ormality. Alignment: Mild 10 degree leftward convex curvature of the lumbar spine. Bone Marrow: Five ltz-qut-lcoalbh lumbar vertebral bodies are assumed. There is marrow edema inferior L3 vertebral body and superior L4 vertebral body. Endplate destruction inferior L3 vertebral body an d superior L4 vertebral body. Right L1 vertebral body benign hemangioma. Disk Levels/Facets: T12-L1: Unremarkable. L1-L2: Posterior 2 mm disk protrusion. L2-L3: Unremarkable. L3-L4: Fluid signal L3-L4 disk interspace. Right anterior paravertebral lobe 1.5 x 1.5 cm transverse dimension 1.7 cm in height abscess. Paravertebral edema. Superior extension from the anterior disk ma rgin of a prevertebral small 1.1 cm in height and 1.3 x 0.7 cm transverse dimension abscess extending to the mid anterior L3 vertebral body level. Edema seen deep to the left psoas muscle at the L4 leve l. Facet joints are within normal limits. Negative for spinal canal stenosis. L4-L5: Severe right and moderate left facet joint arthrosis. Mild right foraminal stenosis from juana inal 2 mm disk protrusion and facet hypertrophy. Mild to moderate left foraminal stenosis from facet hypertrophy and 2 mm foraminal disk protrusion. Mild left lateral recess stenosis from ligamentum fla vum thickening and facet hypertrophy. L5-S1: Moderate bilateral facet joint arthrosis. Negative for spinal canal stenosis or foraminal sten osis. Musculature: Low lumbar and sacral posterior paraspinal muscle atrophy with fatty replacement. Other: Severe chronic atrophy of the [place] kidneys bilaterally. IMPRESSION: Osteomyelitis and diskitis L3-L4 interspace, negative for epidural abscess and there is s mall prevertebral 1.3 x 0.7 x 1.1 cm and anterior right paravertebral 1.5 x 1.5 x 1.7 cm abscesses. Critical result: Findings were phoned to Dr. Desai 2320 hrs. On 05/18/2015. [facility] Referring Provider Line: [phone] SITE ID: [id number]
--- NOTE | 2017-05-17 23:39 | MRI Report ---
EXAM: MRI THORACIC SPINE WITHOUT CONTRAST EXAM DATE: 05/17/2017 03:38 PM. CLINICAL HISTORY: SEVERE WORSENING LBP. Severe low back pain beginning 6 weeks ago. COMPARISONS: MRI lumbar spine 05/17/2017.. TECHNIQUE: Multiplanar, multisequence T1-weighted and fluid-sensitive sequences of the thoracic spine from T6 to superior T12 without contrast. Other: None. FINDINGS: Spinal Cord: No signal abnormality in the visualized spinal cord. Alignment: No scoliosis or spondylolisthesis. Bone Marrow: Probable right L1 vertebral body benign hemangioma. Disk Levels/Facets: C7-T1: Unremarkable. T1-T2: Moderate right facet joint arthrosis. Negative for spinal canal stenosis or foraminal stenosis . T2-T3: Mild left facet joint arthrosis. T3-T4: Unremarkable. T4-T5: Mild right facet joint arthrosis. Negative for spinal canal stenosis or foraminal stenosis. T5-T6: Unremarkable. T6-T7: Unremarkable. T7-T8: Mild disk degeneration. The neural foramina are capacious. The facet joints are within normal limits. T8-T9: Mild disk degeneration. Negative for spinal canal stenosis or foraminal stenosis. Anterior clementine dging osteophyte. T9-T10: Unremarkable T10-T11: Mild left facet joint arthrosis. T11-T12: Unremarkable. T12-L1: Unremarkable. Musculature: Normal. No edema or fatty atrophy. Other: The visualized lungs, mediastinum, and abdominal cavity are unremarkable. IMPRESSION: 1. The thoracic cord is negative for signal abnormality. 2. Negative for spinal canal stenosis, foraminal stenosis or epidural abscess. 3. Negative for thoracic spine diskitis or osteomyelitis. [facility] Referring Provider Line: [phone] SITE ID: [id number]
== END 2017-05-17 13:57 | disposition home or self-care (01) ==
LOC: DI 13:56
PROVIDERS: ATTEND Internal Medicine
DX: M46.26 Osteomyelitis of vertebra, lumbar region (principal); G06.1 Intraspinal abscess and granuloma; M51.26 Other intervertebral disc displacement, lumbar region; M47.896 Other spondylosis, lumbar region; M47.897 Other spondylosis, lumbosacral region
CPT/HCPCS: 72146; 72148

== ENCOUNTER 2017-06-07 08:00 | Outpatient (CLI) | payer BC, MEDICARE, OTHER | END 2017-06-07 08:01 | disposition home or self-care (01) | LOC: LAB.R 08:00 | DX: A09 Infectious gastroenteritis and colitis, unspecified (principal) | CPT/HCPCS: 87493 ==

== ENCOUNTER 2017-07-12 14:55 | Outpatient (CLI) | payer MEDICARE, BC ==
--- NOTE | 2017-07-13 15:28 | MRI Report ---
EXAM: MRI LUMBAR SPINE WITHOUT CONTRAST EXAM DATE: 07/12/2017 03:42 PM. CLINICAL HISTORY: VERTEBRAL OSTEOMYELITIS. COMPARISON: Lumbar spine radiography from 04/26/2017 and lumbar spine MRI from 05/17/2017. TECHNIQUE: Multiplanar, multisequence T1-weighted and fluid-sensitive sequences of the lumbar spine f rom T12 to S1 without contrast. Other: None. FINDINGS: Spinal Cord: The conus terminates at T12-L1. The conus medullaris and cauda equina are unremarkable. Alignment: Mild levoconvex scoliosis. Minimal retrolisthesis at L3-L4 by approximately 1-2 mm. Bone Marrow: Five zoy-ouk-nljzzny lumbar vertebral bodies are assumed. There is isointense signal wit hin the visualized osseous structures consistent with marrow reconversion/hyperplasia. This is new si nce the previous study. As before, there is a hemangioma at the right side of L1 vertebral body. L3-L4: Worsening cortical irregularity at the L3 inferior endplate and L4 superior endplate. Marrow e neel at the inferior 1/3-1/2 of L3 vertebral body and the superior 1/3-1/2 of L4 vertebral body which has not changed significantly since the previous study. Moderate disk space narrowing. The disk heig ht has decreased since the previous study. There is an approximately 1.2 cm superior-inferior by 1 cm medial to lateral by 0.3 cm AP new focus of isointense to slightly hyperintense left anterior parame moses epidural tissue at the L3 level (sagittal image 16 and axial images 18-20). The epidural tissue compresses the ventral left paramedian aspect of the thecal sac. There is persistent T2 hyperintense tissue or fluid within the disk space. There is slightly worse edema within the psoas muscles. No def inite psoas muscle abscess is seen. Mild canal stenosis. Ymvw-ok-jbwbkvzq right and mild left foramin al stenoses. L5-S1: Moderate left and mild right facet arthropathy. No stenoses. L4-L5: Small disk bulge which is asymmetric towards the right. Severe left and moderate to severe rig ht facet arthropathy. Xilr-uc-xuaqwjqy foraminal stenoses. No change. L2-L3: Minimal disk bulge. No stenoses. No change. L1-L2: Small disk bulge. Mild canal stenosis. No foraminal stenoses. No change. T12-L1: Unremarkable. Musculature: Mild to moderate fatty atrophy of the posterior paraspinal muscles. Other: The kidneys are atrophic. IMPRESSION: 1. Progression of diskitis and osteomyelitis at L3-L4. Increased erosions at the L3 and 4 endplate an d L4 superior endplate. Focus of left anterior paramedian epidural tissue at the L3 level may represe nt phlegmon/early forming abscess. Mild left-sided canal stenosis at the L3 level. Mild central canal stenosis at L3-L4 level. Btlz-yc-szctqxfk right and mild left foraminal stenoses. 2. Increased psoas muscle edema suggestive of myositis. No definite psoas muscle abscess is seen. 3. Small asymmetric disk bulge towards the right at L4-L5. Vdgi-oa-rukfmbqw foraminal stenoses. No ch gina. 4. Mild levoconvex scoliosis. 5. Minimal grade 1 retrolisthesis at L3-L4. Comment: The following findings are so common in adults without low back pain that while we report th eir presence, they must be interpreted with caution and in the context of the clinical situation. (Re kwabena Gonzalez et al, Spine 2001) Prevalence of findings in patients without low back pain: Disk degeneration (any evidence): 92% Disk desiccation/T2 signal loss: 83% Disk height loss: 56% Disk bulge: 64% Disk protrusion: 32% Annular tear/high intensity zone: 38% [facility] Referring Provider Line: [phone] SITE ID: [id number]
== END 2017-07-12 14:56 | disposition home or self-care (01) ==
LOC: DI 14:55
PROVIDERS: ATTEND Internal Medicine
DX: M46.26 Osteomyelitis of vertebra, lumbar region (principal); M51.86 Other intervertebral disc disorders, lumbar region; M48.061 Spinal stenosis, lumbar region without neurogenic claudication
CPT/HCPCS: 72148

== ENCOUNTER 2017-07-17 08:00 | Outpatient (CLI) | payer MEDICARE, BC | END 2017-07-17 08:01 | disposition home or self-care (01) | LOC: LAB.R 08:00 | PROVIDERS: ATTEND Internal Medicine Nephrology | DX: A09 Infectious gastroenteritis and colitis, unspecified (principal) | CPT/HCPCS: 87493 ==

== ENCOUNTER 2017-07-17 12:05 | Emergency (ER) | payer MEDICARE, BC ==
[2017-07-17 12:25] VITALS: BP 123/43
[2017-07-17 13:21] LABS: BASOPHILS # (AUTO) 0.1 10^3/uL (0.0-0.1); BASOPHILS % (AUTO) 1.3 %; EOSINOPHILS # (AUTO) 0.1 10^3/uL (0.0-0.7); EOSINOPHILS % (AUTO) 0.6 %; HGB - HEMOGLOBIN 10.6 g/dL (12.0-16.0); LYMPHOCYTES # (AUTO) 0.7 10^3/uL (1.5-3.5); LYMPHOCYTES % (AUTO) 9.1 %; MEAN CORPUSCULAR HEMOGLOBIN 31.9 pg (27.0-31.0); MEAN CORPUSCULAR HGB CONC 31.9 g/dL (32.0-36.0); MEAN CORPUSCULAR VOLUME 99.9 fL (81.0-99.0); MEAN PLATELET VOLUME 7.5 fL (7.9-10.8); MONOCYTES # (AUTO) 0.5 10^3/uL (0.0-1.0); MONOCYTES % (AUTO) 6.2 %; NEUTROPHILS # (AUTO) 6.6 10^3/uL (1.5-6.6); NEUTROPHILS % (AUTO) 82.8 %; PLT - PLATELET COUNT 301 10^3/uL (130-450); RED BLOOD COUNT 3.32 10^6/uL (4.20-5.40); RED CELL DISTRIBUTION WIDTH 24.8 % (12.0-15.0); WHITE BLOOD COUNT 7.9 x10^3/uL (4.8-10.8)
[2017-07-17 13:34] LABS: ALBUMIN 2.5 g/dL (3.2-5.5); ALBUMIN/GLOBULIN RATIO 0.5 (1.0-2.2); ALKALINE PHOSPHATASE 126 IU/L (42-121); ALT ALANINE AMINOTRANSFERASE < 10 IU/L (10-60); AST ASPARTATE AMINOTRANSFERASE 23 IU/L (10-42); BILIRUBIN,TOTAL 1.5 mg/dL (0.2-1.0); BUN - BLOOD UREA NITROGEN 59 mg/dL (6-20); CALCIUM 9.4 mg/dL (8.5-10.3); CARBON DIOXIDE - CO2 27 mmol/L (21-32); CHLORIDE 92 mmol/L (101-111); CREATININE 5.9 mg/dL (0.4-1.0); GFR - MDRD 7 (>89); GLUCOSE 131 mg/dL (70-100); LIPASE 37 U/L (22-51); SODIUM 132 mmol/L (135-145); TOTAL PROTEIN 7.3 g/dL (6.7-8.2)
[2017-07-17 13:48] LABS: PLATELET ESTIMATE, MANUAL NORMAL (130-450,000) (NORMAL); PLATELET MORPHOLOGY NORMAL APPEARANCE (NORMAL)
--- NOTE | 2017-07-17 14:13 | ED Physician Documentation ---
PD HPI NVD - Stated complaint Stated Complaint: LAB SHOWED HIGH POTASSIUM - Chief complaint Chief Complaint: General - History obtained from History obtained from: Patient - History of Present Illness Timing - onset: Yesterday (she had outpt lab yesterday and it showed high K level. Referred to ED for recheck. History of renal failure and does home dialysis. She says she is feeling okay.) Associated symptoms: No: Fever, Abdominal pain, Dizzy, Loss of appetite Similar symptoms before: Diagnosis (high potassium due to renal failure and illness in the past.) Review of Systems Constitutional: denies: Fever Nose: reports: Rhinorrhea / runny nose. denies: Congestion Throat: denies: Sore throat Respiratory: denies: Cough GI: denies: Nausea, Vomiting, Diarrhea (but stool is soft from her meds.) Skin: denies: Rash, Lesions PD PAST MEDICAL HISTORY - Past Medical History Cardiovascular: High cholesterol Respiratory: Sleep apnea, CPAP use Endocrine/Autoimmune: Type 2 diabetes GI: GI bleed, Other : Dialysis, Other HEENT: None Psych: Depression, Anxiety Musculoskeletal: Chronic back pain - Past Surgical History Past Surgical History: Yes - Present Medications Home Medications: Ambulatory Orders Medication Instructions Recorded Confirmed Allopurinol 100 mg PO DAILY 06/05/14 05/10/17 Temazepam [Restoril] 7.5 mg PO DAILY PRN 06/05/14 05/10/17 buPROPion [Wellbutrin Xl] 300 mg PO DAILY 06/05/14 05/10/17 predniSONE [Deltasone] 5 mg PO DAILY 06/05/14 05/10/17 Citalopram Hydrobromide 40 mg PO DAILY 01/27/15 05/10/17 [Citalopram HBr] Sevelamer Carbonate [Renvela] 3 tab PO TID 01/27/15 05/10/17 Calcitriol [Rocaltrol] 0.5 mcg PO DAILY 10/10/15 05/10/17 Calcium Carbonate 1,500 mg PO DAILY 10/10/15 05/10/17 Cinacalcet HCl [Sensipar] 60 mg PO DAILY 10/10/15 05/10/17 Levothyroxine Sodium [Unithroid] 200 mcg PO DAILY 10/10/15 05/10/17 Omeprazole 40 mg PO DAILY 10/10/15 05/10/17 Rosuvastatin Calcium [Crestor] 20 mg PO DAILY 10/10/15 05/10/17 Gabapentin 200 mg 07/17/17 HYDROmorphone [Dilaudid] 1 mg 07/17/17 Sod Polystyrene Sulf. [Kayexalate] 07/17/17 - Allergies Allergies/Adverse Reactions: Allergies Allergy/AdvReac Type Severity Reaction Status Date / Time adhesive tape Allergy Rash Verified 05/01/17 09:37 promethazine HCl * AdvReac Hallucinati Verified 05/01/17 09:37 [From Phenergan] ons tegaderm Allergy Mild Rash Uncoded 07/17/17 12:26 - Social History Does the pt smoke?: No Smoking Status: Never smoker Does the pt drink ETOH?: Yes Does the pt have substance abuse?: No - Immunizations Immunizations are current?: Yes - POLST Patient has POLST: No POLST Status: Full Code PD ED PE NORMAL - Vitals Vital signs reviewed: Yes - General General: Alert and oriented X 3, No acute distress, Well developed/nourished - Neck Neck: Supple, no meningeal sign, No adenopathy - Cardiac Cardiac: RRR, No murmur - Respiratory Respiratory: Clear bilaterally - Abdomen Abdomen: Normal bowel sounds, Soft, Non tender, Non distended - Back Back: No CVA TTP - Derm Derm: Normal color, Warm and dry - Extremities Extremities: No deformity, No tenderness to palpate, No edema, No calf tenderness / cord - Neuro Neuro: Alert and oriented X 3, No motor deficit, Normal speech Results - Vitals Vitals: Vital Signs - 24 hr 07/17/17 12:18 Temperature 36.9 C Heart Rate 92 Respiratory 17 Rate Blood Pressure 123/43 L O2 Saturation 100 Oxygen O2 Source Room air - Labs Labs: Laboratory Tests 07/17/17 07/17/17 07/17/17 13:09 13:09 13:09 WBC 7.9 RBC 3.32 L Hgb 10.6 L Hct 33.1 L MCV 99.9 H MCH 31.9 H MCHC 31.9 L RDW 24.8 H Plt Count 301 MPV 7.5 L Neut # 6.6 Lymph # 0.7 L [place] # 0.5 Eos # 0.1 Baso # 0.1 Absolute Nucleated RBC 0.01 Nucleated RBC % 0.1 Manual Slide Review Indicated Platelet Estimate NORMAL (130-450,000) Platelet Morphology NORMAL APPEARANCE RBC Morph Micro Appear 1+ MACROCYTOSIS Sodium 132 L Potassium 5.1 H Chloride 92 L Carbon Dioxide 27 Anion Gap 13.0 BUN 59 H Creatinine 5.9 H Estimated GFR (MDRD) 7 L Glucose 131 H Calcium 9.4 Phosphorus 3.2 Magnesium 2.8 Total Bilirubin 1.5 H AST 23 ALT < 10 L Alkaline Phosphatase 126 H Total Protein 7.3 Albumin 2.5 L Globulin 4.8 H Albumin/Globulin Ratio 0.5 L Lipase 37 PD MEDICAL DECISION MAKING - ED course Complexity details: reviewed results (had had high K on outpt lab from yesterday. Lab here today is reasonable K level. ), considered differential, d/ w patient, d/w cardiology consultants (LEE Cohn) Departure - Departure Disposition: 01 Home, Self Care Clinical Impression: Hyperkalemia, ESRD (end stage renal disease) Condition: Stable Record reviewed to determine appropriate education?: Yes Follow-Up: René Wood MD [Primary Care Provider] - Xander Cohn MD [Provider Admit Priv/Credential] - Comments: Continue usual medications and do your dialysis today as scheduled. Recheck if problems. I did update LEE Cohn so he is aware. Discharge Date/Time: 07/17/17 15:06
[2017-07-17 14:33] LABS: MAGNESIUM 2.8 mg/dL (1.7-2.8); PHOSPHORUS 3.2 mg/dL (2.5-4.6)
== END 2017-07-17 15:06 | disposition home or self-care (01) ==
LOC: ED 12:05
DX: E87.5 Hyperkalemia (principal); E11.22 Type 2 diabetes mellitus with diabetic chronic kidney disease; N18.6 End stage renal disease; Z79.4 Long term (current) use of insulin; Z99.2 Dependence on renal dialysis; A09 Infectious gastroenteritis and colitis, unspecified; E78.00 Pure hypercholesterolemia, unspecified; G47.30 Sleep apnea, unspecified
CPT/HCPCS: 36415; 80053; 83690; 83735; 84100; 85025; 87493; 99282

== ENCOUNTER 2017-08-30 11:02 | Outpatient (CLI) | payer MEDICARE, BC ==
--- NOTE | 2017-08-30 20:11 | XRAY Report ---
Procedure Date: 08/30/2017 Accession Number: [id number] / [id number] Procedure: XR - Lumbar Spine 2 View CPT Code: FULL RESULT: EXAM: LUMBOSACRAL SPINE RADIOGRAPHY. EXAM DATE: 08/30/2017 11:16 AM. CLINICAL HISTORY: Diskitis of lumbar region. COMPARISONS: lumbar spine 2 view 04/26/2017. TECHNIQUE: 3 views. FINDINGS: Alignment: Stable mild levoscoliosis. Stable mild retrolisthesis at L3-L4 and mild anterolisthesis at L4-L5. Bones: Five nwx-qix-xubfbgw lumbar vertebral bodies are present. No fractures or bone lesions. Disks: New endplate irregularity with sclerosis and loss of disk space at L3-L4. Stable disk space narrowing at L4-L5 and L1-L2. Sacroiliac Joints: Unremarkable. Soft Tissues: Normal. The visualized bowel gas pattern is normal. IMPRESSION: Endplate irregularity with endplate sclerosis and loss of disk space at L3-L4 compatible with diskitis. [facility]
--- NOTE | 2017-08-31 10:59 | CT Report ---
Procedure Date: 08/30/2017 Accession Number: [id number] / [id number] Procedure: CT - Lumbar Spine W/O CPT Code: FULL RESULT: EXAM: CT LUMBAR SPINE WITHOUT CONTRAST EXAM DATE: 08/30/2017 11:32 AM. CLINICAL HISTORY: DISCITIS OF LUMBAR REGION. COMPARISONS: 08/30/2017 lumbar spine radiographs 10 07/12/[address] abdomen and pelvis 05/10/2017 TECHNIQUE: Thin-section axial images were acquired of the lumbar spine from T12 to S1 without contrast. Post-processing: Coronal and sagittal reformats. Other: None. In accordance with CT protocol optimization, one or more of the following dose reduction techniques were utilized for this exam: automated exposure control, adjustment of mA and/or KV based on patient size, or use of iterative reconstructive technique. FINDINGS: Alignment: Retrolisthesis of L3 and L4 measures 3 mm. Minimal lumbar levoscoliosis measuring approximately 5 degrees is unchanged. Bones: Five [id number] lumbar vertebral bodies are present. No fractures. No osseous lesions. When compared to the prior CT, there is increased irregularity of the inferior endplate of L3 and superior endplate of L4 with increasing sclerosis and progressive disk height loss, now moderate-severe. However, there is new vacuum disk phenomenon within the L3-L4 disk space. An intraosseous hemangioma within the right side of the L1 vertebral body is unchanged. Bones are otherwise normal. Disk Levels/Facets: T12-L1: Unremarkable. L1-L2: Unremarkable. L2-L3: Shallow broad-based disk bulge without spinal canal or foraminal stenosis. L3-L4: Moderate-severe intervertebral disk height loss with sequelae of prior diskitis-osteomyelitis. Broad-based disk bulge and mild facet arthropathy with thickening of ligamentum flavum results in mild spinal canal and moderate bilateral foraminal stenosis. L4-L5: A broad-based disk bulge and moderate facet arthropathy results in mild spinal canal and moderate bilateral foraminal stenosis, unchanged. L5-S1: Shallow broad-based disk bulge and moderate facet arthropathy without spinal canal or foraminal stenosis. Musculature: Normal. No fatty atrophy. Other: The visualized retroperitoneum is unremarkable. IMPRESSION: 1. Sequelae of prior diskitis-osteomyelitis at L3-L4, with increased irregularity and sclerosis at the inferior endplate of L3 and superior endplate of L4, but new vacuum disk phenomenon within the disk space that suggest resolving diskitis. No new areas of diskitis-osteomyelitis. 2. Unchanged multilevel lumbar spondylosis. RADIA
== END 2017-08-30 11:03 | disposition home or self-care (01) ==
LOC: DI 11:02
PROVIDERS: ATTEND Physician Assistant
DX: M46.46 Discitis, unspecified, lumbar region (principal)
CPT/HCPCS: 72100; 72131

== ENCOUNTER 2017-09-19 16:30 | Outpatient (CLI) | payer MEDICARE, BC | END 2017-09-19 16:31 | disposition critical access hospital (66) | LOC: EMS 16:30 | PROVIDERS: ATTEND Surgery | DX: R06.02 Shortness of breath (principal); L29.9 Pruritus, unspecified; M54.9 Dorsalgia, unspecified | CPT/HCPCS: A0425; A0429 ==

== ENCOUNTER 2017-09-19 16:51 | Emergency (ER) | payer MEDICARE, BC ==
[2017-09-19] MEDS ORDERED: hydrOXYzine PAMOATE 25 MG CAPSULE PO STA ×2 (17:44→18:48)
--- NOTE | 2017-09-19 17:46 | ED Physician Documentation ---
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 She is followed by Dr. Bethany baker [place] who is her infectious disease doctor. She is also dialysis dependent. She has noted for the last month ever since starting medication she has had itching and she is actively itching herself what we talked as well as dyspnea and poor appetite, when she looked at the potential side effects for the new antibiotic all these were listed and she concerned that is what is causing it.) Review of Systems Ten Systems: 10 systems reviewed and negative Constitutional: denies: Fever, Chills Cardiac: denies: Chest pain / pressure, Palpitations Respiratory: denies: Cough GI: denies: Abdominal Pain PD PAST MEDICAL HISTORY - Past Medical History Cardiovascular: High cholesterol Respiratory: Sleep apnea, CPAP use Endocrine/Autoimmune: Type 2 diabetes GI: GI bleed, Other : Dialysis, Other HEENT: None Psych: Depression, Anxiety Musculoskeletal: Chronic back pain - Past Surgical History Past Surgical History: Yes - Present Medications Home Medications: Ambulatory Orders Medication Instructions Recorded Confirmed buPROPion [Wellbutrin Xl] 300 mg PO DAILY 06/05/14 05/10/17 predniSONE [Deltasone] 5 mg PO DAILY 06/05/14 05/10/17 Citalopram Hydrobromide 40 mg PO DAILY 01/27/15 05/10/17 [Citalopram HBr] Sevelamer Carbonate [Renvela] 3 tab PO TID 01/27/15 05/10/17 Cinacalcet HCl [Sensipar] 60 mg PO DAILY 10/10/15 05/10/17 Levothyroxine Sodium [Unithroid] 200 mcg PO DAILY 10/10/15 05/10/17 Omeprazole 40 mg PO DAILY 10/10/15 05/10/17 Rosuvastatin Calcium [Crestor] 20 mg PO DAILY 10/10/15 05/10/17 HYDROmorphone [Dilaudid] 1 mg 07/17/17 hydrOXYzine PAMOATE [Vistaril] 25 mg PO Q6H PRN #15 capsule 09/19/17 - Allergies Allergies/Adverse Reactions: Allergies Allergy/AdvReac Type Severity Reaction Status Date / Time adhesive tape Allergy Rash Verified 09/19/17 17:00 promethazine HCl * AdvReac Hallucinati Verified 09/19/17 17:00 [From Phenergan] ons tegaderm Allergy Mild Rash Uncoded 07/17/17 12:26 - Social History Does the pt smoke?: No Smoking Status: Never smoker Does the pt drink ETOH?: Yes Does the pt have substance abuse?: No - Immunizations Immunizations are current?: Yes - POLST Patient has POLST: No POLST Status: Full Code PD ED PE NORMAL - Vitals Vital signs reviewed: Yes - General General: Alert and oriented X 3, No acute distress - Cardiac Cardiac: RRR, No murmur - Respiratory Respiratory: No respiratory distress, Clear bilaterally - Derm Derm: Other (She has no rash but she is actively scratching her forearms.) - Extremities Extremities: No edema, No calf tenderness / cord - Neuro Neuro: Alert and oriented X 3, Normal speech Results - Vitals Vitals: Vital Signs - 24 hr 09/19/17 16:54 Temperature 36.8 C Heart Rate 93 Respiratory 22 Rate Blood Pressure 105/41 L O2 Saturation 100 Oxygen O2 Source Room air - EKG (time done) 1702 Rate: Rate (enter#) (91) Rhythm: NSR QRS: Low voltage Ischemia: Non specific changes Computer interpretation: Agree with computer - Labs Labs: Laboratory Tests 09/19/17 09/19/17 17:50 17:50 WBC 6.4 RBC 4.35 Hgb 12.5 Hct 40.0 MCV 91.8 MCH 28.6 MCHC 31.2 L RDW 17.5 H Plt Count 272 MPV 7.2 L Neut # (Auto) 5.1 Lymph # (Auto) 0.6 L [place] # (Auto) 0.5 Eos # (Auto) 0.1 Baso # (Auto) 0.1 Absolute Nucleated RBC 0.00 Nucleated RBC % 0.0 Sodium 130 L Potassium 3.9 Chloride 88 L Carbon Dioxide 28 Anion Gap 14.0 H BUN 34 H Creatinine 4.0 H Estimated GFR (MDRD) 11 L Glucose 147 H Calcium 10.1 - Rads (name of study) 2v chest Radiology: EMP read contemporaneously (cardiomegaly, NAD) PD MEDICAL DECISION MAKING - ED course ED course: I spoke with Dr. Gould, infectious disease in [place] and discussed the case. He did not have ready access to her culture data, but given what we knew about her he presumes that she is on suppressive therapy and it is safe to stop it for the next 3 days and to have her call the clinic on Friday. - Sepsis Event Vital Signs: Vital Signs - 24 hr 09/19/17 16:54 Temperature 36.8 C Heart Rate 93 Respiratory 22 Rate Blood Pressure 105/41 L O2 Saturation 100 Oxygen O2 Source Room air Departure - Departure Disposition: Home, Self Care Clinical Impression: Antibiotic reaction Condition: Good Record reviewed to determine appropriate education?: Yes Instructions: ED Drug React Adverse Other Prescriptions: hydrOXYzine PAMOATE [Vistaril] 25 mg PO Q6H PRN #15 capsule PRN Reason: Itching Comments: Per the infectious disease physician Dc, stop the antibiotic you are on for now and call Dr. Sims's office on Friday for replacement.
[2017-09-19 17:57] LABS: BASOPHILS # (AUTO) 0.1 10^3/uL (0.0-0.1); BASOPHILS % (AUTO) 1.5 %; EOSINOPHILS # (AUTO) 0.1 10^3/uL (0.0-0.7); EOSINOPHILS % (AUTO) 1.7 %; HGB - HEMOGLOBIN 12.5 g/dL (12.0-16.0); LYMPHOCYTES # (AUTO) 0.6 10^3/uL (1.5-3.5); LYMPHOCYTES % (AUTO) 9.6 %; MEAN CORPUSCULAR HEMOGLOBIN 28.6 pg (27.0-31.0); MEAN CORPUSCULAR HGB CONC 31.2 g/dL (32.0-36.0); MEAN CORPUSCULAR VOLUME 91.8 fL (81.0-99.0); MEAN PLATELET VOLUME 7.2 fL (7.9-10.8); MONOCYTES # (AUTO) 0.5 10^3/uL (0.0-1.0); MONOCYTES % (AUTO) 7.5 %; NEUTROPHILS # (AUTO) 5.1 10^3/uL (1.5-6.6); NEUTROPHILS % (AUTO) 79.7 %; PLT - PLATELET COUNT 272 10^3/uL (130-450); RED BLOOD COUNT 4.35 10^6/uL (4.20-5.40); RED CELL DISTRIBUTION WIDTH 17.5 % (12.0-15.0); WHITE BLOOD COUNT 6.4 x10^3/uL (4.8-10.8)
[2017-09-19 18:04] LABS: CALCIUM 10.1 mg/dL (8.5-10.3)
--- NOTE | 2017-09-19 18:40 | XRAY Report ---
Procedure Date: 09/19/2017 Accession Number: [id number] / [id number] Procedure: XR - Chest 2 View X-Ray CPT Code: 32097 FULL RESULT: EXAM: CHEST RADIOGRAPHY EXAM DATE: 09/19/2017 06:21 PM. CLINICAL HISTORY: Dyspnea. COMPARISON: CHEST 1 VIEW 10/23/2016. TECHNIQUE: 2 views. FINDINGS: Lungs/Pleura: No evidence of focal infiltrate. No effusion or pneumothorax. Mediastinum: There is cardiomegaly. Other: None. IMPRESSION: 1. There is cardiomegaly. 2. No clear evidence of acute infiltrate or effusion. No pneumothorax. RADIA
[2017-09-19 19:23] VITALS: BP 122/59
== END 2017-09-19 20:00 | disposition home or self-care (01) ==
LOC: EDUNIT# → ED 16:51
DX: T36.1X5A Adverse effect of cephalosporins and other beta-lactam antibiotics, initial encounter (principal); E11.9 Type 2 diabetes mellitus without complications; Z99.2 Dependence on renal dialysis; I51.7 Cardiomegaly
CPT/HCPCS: 36415; 71046; 80048; 85025; 93005; 99283; A9270

== ENCOUNTER 2017-10-11 16:18 | Emergency (ER) | payer MEDICARE, BC ==
[2017-10-11 17:09] LABS: BASOPHILS # (AUTO) 0.1 10^3/uL (0.0-0.1); BASOPHILS % (AUTO) 1.1 %; EOSINOPHILS # (AUTO) 0.1 10^3/uL (0.0-0.7); EOSINOPHILS % (AUTO) 1.4 %; HGB - HEMOGLOBIN 12.7 g/dL (12.0-16.0); LYMPHOCYTES # (AUTO) 0.9 10^3/uL (1.5-3.5); LYMPHOCYTES % (AUTO) 11.4 %; MEAN CORPUSCULAR HEMOGLOBIN 28.6 pg (27.0-31.0); MEAN CORPUSCULAR VOLUME 84.2 fL (81.0-99.0); MEAN PLATELET VOLUME 7.4 fL (7.9-10.8); MONOCYTES # (AUTO) 0.8 10^3/uL (0.0-1.0); NEUTROPHILS # (AUTO) 5.8 10^3/uL (1.5-6.6); NEUTROPHILS % (AUTO) 76.1 %; PLT - PLATELET COUNT 310 10^3/uL (130-450); RED BLOOD COUNT 4.45 10^6/uL (4.20-5.40); RED CELL DISTRIBUTION WIDTH 17.2 % (12.0-15.0); WHITE BLOOD COUNT 7.6 x10^3/uL (4.8-10.8)
[2017-10-11 17:23] LABS: ALBUMIN 3.8 g/dL (3.2-5.5); BILIRUBIN,TOTAL 0.6 mg/dL (0.2-1.0); TOTAL PROTEIN 7.7 g/dL (6.7-8.2)
[2017-10-11] MEDS ORDERED: HYDROmorphone 1 MG/ML CARPUJECT IVP STA (17:28)
[2017-10-11] MEDS ORDERED: IOPAMIDOL-300 100 ML VIAL ONE (17:32)
[2017-10-11] MEDS ORDERED: IOPAMIDOL-300 100 ML VIAL IVP ONE (18:02)
--- NOTE | 2017-10-11 18:26 | CT Report ---
Procedure Date: 10/11/2017 Accession Number: [id number] / [id number] Procedure: CT - Pelvis W/ CPT Code: FULL RESULT: EXAM: CT PELVIS EXAM DATE: 10/11/2017 06:10 PM. CLINICAL HISTORY: Rectal pain. COMPARISONS: LUMBAR SPINE W/O 08/30/2017 11:22 AM ABDOMEN/PELVIS W/O 05/10/2017 8:13 AM. TECHNIQUE: Routine helical CT imaging was performed through the pelvis. IV contrast: ISOVUE 300 100mL. Enteric contrast: No. Reconstructions: Coronal and sagittal. In accordance with CT protocol optimization, one or more of the following dose reduction techniques were utilized for this exam: automated exposure control, adjustment of mA and/or KV based on patient size, or use of iterative reconstructive technique. FINDINGS: Visualized Abdominal Organs: Normal. Peritoneal Cavity/Bowel: There is a large right lower quadrant hernia defect measuring 9.6 cm in diameter. There is herniation of omentum, small bowel and colon through the large defect. This finding appears similar to the previous examination. There is no intraperitoneal free fluid or free air. Appendix appears within normal limits. Pelvic Organs: The urinary bladder is empty. The uterus appears normal in size. Ovaries appear normal in size. There is evidence of pelvic floor prolapse. The anus is located approximately 3.8 cm inferior to the level of the inferior pubic symphysis. Vasculature: No aneurysms or other significant abnormality. Bones: No significant abnormality. Other: None. IMPRESSION: 1. Pelvic floor prolapse. 2. Large right lower quadrant ventral hernia defect with protrusion of omentum and bowel through the defect without bowel obstruction. Unchanged. 3. No abscess or mass. RADIA
--- NOTE | 2017-10-11 18:38 | ED Physician Documentation ---
History of Present Illness - Stated complaint Stated Complaint: FEMALE - Chief complaint Chief Complaint: Abd Pain - History obtained from History obtained from: Patient, Family - History of Present Illness Timing: How many days ago (several days) Pain level max: 8 Pain level now: 7 Quality: aching, pain Improved by: nothing Worsened by: trying to have a BM - Additonal information Additional information: Patient is a 67-year-old female who performs home hemodialysis 5 days a week who presents with rectal pain. States similar to past hemorrhoids. No fevers. No chills. States has noted some blood on the toilet paper recently and is concerned about potential bleeding. 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, Other HEENT: None, Macular degeneration, Chronic hearing loss Psych: Depression, Anxiety Musculoskeletal: Chronic back pain Derm: None - Past Surgical History Past Surgical History: Yes - Present Medications Home Medications: Ambulatory Orders Medication Instructions Recorded Confirmed buPROPion [Wellbutrin Xl] 300 mg PO DAILY 06/05/14 05/10/17 predniSONE [Deltasone] 5 mg PO DAILY 06/05/14 05/10/17 Citalopram Hydrobromide 40 mg PO DAILY 01/27/15 05/10/17 [Citalopram HBr] Sevelamer Carbonate [Renvela] 3 tab PO TID 01/27/15 05/10/17 Cinacalcet HCl [Sensipar] 60 mg PO DAILY 10/10/15 05/10/17 Levothyroxine Sodium [Unithroid] 200 mcg PO DAILY 10/10/15 05/10/17 Omeprazole 40 mg PO DAILY 10/10/15 05/10/17 Rosuvastatin Calcium [Crestor] 20 mg PO DAILY 10/10/15 05/10/17 HYDROmorphone [Dilaudid] 1 mg 07/17/17 hydrOXYzine PAMOATE [Vistaril] 25 mg PO Q6H PRN #15 capsule 09/19/17 Lidocaine [Recticare] 1 applic TP Q6H PRN #1 bottle 10/11/17 - Allergies Allergies/Adverse Reactions: Allergies Allergy/AdvReac Type Severity Reaction Status Date / Time adhesive tape Allergy Rash Verified 10/11/17 16:27 promethazine HCl * AdvReac Hallucinati Verified 10/11/17 16:27 [From Phenergan] ons tegaderm Allergy Mild Rash Uncoded 10/11/17 16:27 - Social History Does the pt smoke?: No Smoking Status: Never smoker Does the pt drink ETOH?: Yes Does the pt have substance abuse?: No - Immunizations Immunizations are current?: Yes - POLST Patient has POLST: No POLST Status: Full Code PD ED PE NORMAL - Vitals Vital signs reviewed: Yes - General General: Alert and oriented X 3, No acute distress - HEENT HEENT: Moist mucous membranes - Neck Neck: Supple, no meningeal sign - Cardiac Cardiac: RRR - Respiratory Respiratory: No respiratory distress, Clear bilaterally - Abdomen Abdomen: Soft, Non tender, Non distended - Female Female : Other (unable to tolerate rectal exam. normal external exam.) - Derm Derm: Warm and dry - Neuro Neuro: Alert and oriented X 3 - Psych Psych: Normal mood, Normal affect Results - Vitals Vitals: Vital Signs - 24 hr 10/11/17 10/11/17 16:23 19:14 Temperature 36.6 C 37 C Heart Rate 97 98 Respiratory 20 16 Rate Blood Pressure 96/33 L 85/36 L O2 Saturation 96 95 Oxygen O2 Source Room air - Labs Labs: Laboratory Tests 10/11/17 10/11/17 10/11/17 17:06 17:06 17:25 WBC 7.6 RBC 4.45 Hgb 12.7 Hct 37.5 MCV 84.2 MCH 28.6 MCHC 34.0 RDW 17.2 H Plt Count 310 MPV 7.4 L Neut # (Auto) 5.8 Lymph # (Auto) 0.9 L [place] # (Auto) 0.8 Eos # (Auto) 0.1 Baso # (Auto) 0.1 Absolute Nucleated RBC 0.00 Nucleated RBC % 0.0 Sodium 130 L Potassium 4.8 Chloride 92 L Carbon Dioxide 25 Anion Gap 13.0 BUN 52 H Creatinine 6.0 H Estimated GFR (MDRD) 7 L Glucose 153 H POC Whole Bld Glucose 152 H Calcium 10.0 Total Bilirubin 0.6 AST 20 ALT 16 Alkaline Phosphatase 117 Total Protein 7.7 Albumin 3.8 Globulin 3.9 Albumin/Globulin Ratio 1.0 Lipase 46 - Rads (name of study) pelvis CT w/ Radiology: Prelim report reviewed, EMP read contemporaneously, See rad report ( Pelvic floor prolapse. Large right lower quadrant ventral hernia defect with protrusion of omentum and bowel through the defect without bowel obstruction. Unchanged. No abscess or mass. ) PD MEDICAL DECISION MAKING - ED course Complexity details: reviewed results, re-evaluated patient, considered differential, d/w patient, d/w family ED course: Patient is a 67-year-old female with rectal pain. Unclear etiology. Possible internal hemorrhoids but is unable to tolerate a rectal exam. Pain controlled in the emergency department. Will place on lidocaine ointment and follow-up closely with her doctor. Concern for possible perirectal abscess, therefore CT scan was performed. This is negative. Patient and comfortable going home at this time. Patient counseled regarding signs and symptoms for which I believe and urgent re-evaluation would be necessary. Patient with good understanding of and agreement to plan. This document was made in part using voice recognition software. While efforts are made to proofread this document, sound alike and grammatical errors may occur. - Sepsis Event Vital Signs: Vital Signs - 24 hr 10/11/17 10/11/17 16:23 19:14 Temperature 36.6 C 37 C Heart Rate 97 98 Respiratory 20 16 Rate Blood Pressure 96/33 L 85/36 L O2 Saturation 96 95 Oxygen O2 Source Room air Departure - Departure Disposition: 01 Home, Self Care Clinical Impression: Rectal pain Condition: Stable Instructions: ED Hemorrhoids Follow-Up: René Wood MD [Primary Care Provider] - Within 1 week Prescriptions: Lidocaine [Recticare] 1 applic TP Q6H PRN #1 bottle PRN Reason: hemorrhoids Comments: Return if you worsen. Your labs and CT scan do not show any acute issues tonight. Discharge Date/Time: 10/11/17 19:37
[2017-10-11 19:19] VITALS: BP 85/36
== END 2017-10-11 19:37 | disposition home or self-care (01) ==
LOC: ED 16:18
DX: K62.89 Other specified diseases of anus and rectum (principal); I10 Essential (primary) hypertension; E11.9 Type 2 diabetes mellitus without complications
CPT/HCPCS: 36415; 72193; 80053; 83690; 85025; 96374; 99283; J1170; Q9967

== ENCOUNTER 2017-10-13 13:18 | Outpatient (CLI) | payer MEDICARE, BC | END 2017-10-13 13:19 | disposition critical access hospital (66) | LOC: EMS 13:18 | PROVIDERS: ATTEND Surgery | DX: R45.851 Suicidal ideations (principal) | CPT/HCPCS: A0425; A0429 ==

== ENCOUNTER 2017-10-13 13:40 | Emergency (ER) | payer MEDICARE, BC ==
[2017-10-13 14:38] LABS: BASOPHILS # (AUTO) 0.1 10^3/uL (0.0-0.1); BASOPHILS % (AUTO) 1.1 %; EOSINOPHILS # (AUTO) 0.1 10^3/uL (0.0-0.7); EOSINOPHILS % (AUTO) 1.5 %; HGB - HEMOGLOBIN 12.4 g/dL (12.0-16.0); LYMPHOCYTES # (AUTO) 0.8 10^3/uL (1.5-3.5); LYMPHOCYTES % (AUTO) 12.6 %; MEAN CORPUSCULAR VOLUME 84.9 fL (81.0-99.0); MEAN PLATELET VOLUME 7.5 fL (7.9-10.8); MONOCYTES # (AUTO) 0.6 10^3/uL (0.0-1.0); MONOCYTES % (AUTO) 8.4 %; NEUTROPHILS # (AUTO) 5.1 10^3/uL (1.5-6.6); NEUTROPHILS % (AUTO) 76.4 %; PLT - PLATELET COUNT 275 10^3/uL (130-450); RED BLOOD COUNT 4.44 10^6/uL (4.20-5.40); RED CELL DISTRIBUTION WIDTH 16.9 % (12.0-15.0); WHITE BLOOD COUNT 6.7 x10^3/uL (4.8-10.8)
--- NOTE | 2017-10-13 14:46 | ED Physician Documentation ---
PD HPI MHE - Stated complaint Stated Complaint: MHE - Chief complaint Chief Complaint: MHE - History obtained from History obtained from: Patient, EMS - History of Present Illness Primary symptom: Suicidal ideation Timing - onset: Chronic (worse today) Pain level max: 10 Pain level now: 10 Contributing factors: Other (states tired of being chronically ill) Similar symptoms before: Diagnosis (depression) - Additional information Additional information: states used to see a counselor, but not anymore. No psychiatrist. Was going to OD on insulin, but could not find her medications. Still feels suicidal. Review of Systems Constitutional: denies: Fever, Chills Ears: denies: Ear pain Nose: denies: Rhinorrhea / runny nose, Congestion Cardiac: denies: Chest pain / pressure Respiratory: denies: Cough GI: denies: Abdominal Pain, Nausea, Vomiting, Diarrhea Skin: denies: Rash Musculoskeletal: reports: Back pain (chronic). 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 HEENT: None, Macular degeneration, Chronic hearing loss Psych: Depression, Anxiety Musculoskeletal: Chronic back pain Derm: None - Past Surgical History Past Surgical History: Yes - Present Medications Home Medications: Ambulatory Orders Medication Instructions Recorded Confirmed buPROPion [Wellbutrin Xl] 300 mg PO DAILY 06/05/14 05/10/17 predniSONE [Deltasone] 5 mg PO DAILY 06/05/14 05/10/17 Citalopram Hydrobromide 40 mg PO DAILY 01/27/15 05/10/17 [Citalopram HBr] Sevelamer Carbonate [Renvela] 3 tab PO TID 01/27/15 05/10/17 Cinacalcet HCl [Sensipar] 60 mg PO DAILY 10/10/15 05/10/17 Levothyroxine Sodium [Unithroid] 200 mcg PO DAILY 10/10/15 05/10/17 Omeprazole 40 mg PO DAILY 10/10/15 05/10/17 Rosuvastatin Calcium [Crestor] 20 mg PO DAILY 10/10/15 05/10/17 HYDROmorphone [Dilaudid] 1 mg 07/17/17 hydrOXYzine PAMOATE [Vistaril] 25 mg PO Q6H PRN #15 capsule 09/19/17 Lidocaine [Recticare] 1 applic TP Q6H PRN #1 bottle 10/11/17 - Allergies Allergies/Adverse Reactions: Allergies Allergy/AdvReac Type Severity Reaction Status Date / Time adhesive tape Allergy Rash Verified 10/13/17 13:50 promethazine HCl * AdvReac Hallucinati Verified 10/13/17 13:50 [From Phenergan] ons tegaderm Allergy Mild Rash Uncoded 10/13/17 13:50 - Social History Does the pt smoke?: No Smoking Status: Never smoker Does the pt drink ETOH?: Yes Does the pt have substance abuse?: No - Immunizations Immunizations are current?: Yes - POLST Patient has POLST: No POLST Status: Full Code PD ED PE NORMAL - Vitals Vital signs reviewed: Yes - General General: Alert and oriented X 3, No acute distress - HEENT HEENT: Moist mucous membranes - Neck Neck: Supple, no meningeal sign - Cardiac Cardiac: RRR - Respiratory Respiratory: No respiratory distress, Clear bilaterally Results - Vitals Vitals: Vital Signs - 24 hr 10/13/17 10/13/17 13:45 17:25 Temperature 35.7 C L 36.0 C L Heart Rate 93 94 Respiratory 16 20 Rate Blood Pressure 95/44 L 89/41 L O2 Saturation 99 93 Oxygen O2 Source Room air - Labs Labs: Laboratory Tests 10/13/17 10/13/17 10/13/17 14:13 14:13 14:13 WBC 6.7 RBC 4.44 Hgb 12.4 Hct 37.6 MCV 84.9 MCH 28.0 MCHC 33.0 RDW 16.9 H Plt Count 275 MPV 7.5 L Neut # (Auto) 5.1 Lymph # (Auto) 0.8 L [place] # (Auto) 0.6 Eos # (Auto) 0.1 Baso # (Auto) 0.1 Absolute Nucleated RBC 0.00 Nucleated RBC % 0.0 Sodium 128 L Potassium 4.7 Chloride 89 L Carbon Dioxide 23 Anion Gap 16.0 H BUN 48 H Creatinine 5.8 H Estimated GFR (MDRD) 7 L Glucose 136 H Calcium 9.6 Total Bilirubin 0.8 AST 21 ALT 14 Alkaline Phosphatase 111 Total Protein 7.8 Albumin 3.8 Globulin 4.0 Albumin/Globulin Ratio 1.0 Lipase 38 TSH 3.13 Salicylates < 6.0 Acetaminophen < 10 L Ethyl Alcohol < 5.0 PD MEDICAL DECISION MAKING - ED course Complexity details: reviewed old records, reviewed results, re-evaluated patient , considered differential, d/w patient, d/w family, d/w independent beauty consultant ED course: Patient is a 67-year-old female with suicidal ideation today. She improved throughout her emergency department stay. Social work was contacted and a plan was made for mental health to check on her tomorrow. Her sister is coming into [facility] and the patient feels that she can keep herself safe at home with her sister. Her is also on board with the plan. Patient states she feels much better after ketamine. Patient counseled regarding signs and symptoms for which I believe and urgent re-evaluation would be necessary. Patient with good understanding of and agreement to plan and is comfortable going home at this time This document was made in part using voice recognition software. While efforts are made to proofread this document, sound alike and grammatical errors may occur. - Sepsis Event Vital Signs: Vital Signs - 24 hr 10/13/17 10/13/17 13:45 17:25 Temperature 35.7 C L 36.0 C L Heart Rate 93 94 Respiratory 16 20 Rate Blood Pressure 95/44 L 89/41 L O2 Saturation 99 93 Oxygen O2 Source Room air Departure - Departure Disposition: 01 Home, Self Care Clinical Impression: Depression Qualifiers: Depression Type: unspecified Qualified Code(s): F32.9 - Major depressive disorder, single episode, unspecified Condition: Good Instructions: ED Depression Follow-Up: René Wood MD [Primary Care Provider] - Within 3 Days Comments: Your sister will stay with you [facility]. The community outreach team will speak with you tomorrow. Return if you worsen. Crisis Line and is available to talk to someone [email or web address] is also available to chat with someone online if you prefer. There are also many resources on this website and apps for your phone to help with your mental health You can also text the word START to [phone] to chat with someome via text. Discharge Date/Time: 10/13/17 18:20
[2017-10-13 14:56] LABS: ALBUMIN 3.8 g/dL (3.2-5.5); ALKALINE PHOSPHATASE 111 IU/L (42-121); ALT ALANINE AMINOTRANSFERASE 14 IU/L (10-60); AST ASPARTATE AMINOTRANSFERASE 21 IU/L (10-42); BILIRUBIN,TOTAL 0.8 mg/dL (0.2-1.0); BUN - BLOOD UREA NITROGEN 48 mg/dL (6-20); CALCIUM 9.6 mg/dL (8.5-10.3); CARBON DIOXIDE - CO2 23 mmol/L (21-32); CHLORIDE 89 mmol/L (101-111); CREATININE 5.8 mg/dL (0.4-1.0); GFR - MDRD 7 (>89); GLUCOSE 136 mg/dL (70-100); LIPASE 38 U/L (22-51); SALICYLATE < 6.0 mg/dL; SODIUM 128 mmol/L (135-145); TOTAL PROTEIN 7.8 g/dL (6.7-8.2)
[2017-10-13 14:58] LABS: ACETAMINOPHEN < 10 ug/mL (10-30)
[2017-10-13] MEDS ORDERED: MORPHINE 2 MG/ML SYRINGE IVP STA (15:30)
[2017-10-13] MEDS ORDERED: KETAMINE 500 MG/10 ML VIAL IVP ONE (16:27)
[2017-10-13 17:26] VITALS: BP 89/41
== END 2017-10-13 18:20 | disposition home or self-care (01) ==
LOC: EDUNIT# → ED 13:40
DX: F32.9 Major depressive disorder, single episode, unspecified (principal); I10 Essential (primary) hypertension; E11.9 Type 2 diabetes mellitus without complications; Z79.4 Long term (current) use of insulin
CPT/HCPCS: 36415; 80053; 83690; 84443; 85025; 96374; 99283; 99284; J2270; 80307; 80320; 80329